=== PATIENT | female | born 1940 | race Caucasian/White ===

== ENCOUNTER 2017-09-25 21:50 | Emergency (ER) | payer MEDICARE, OTHER ==
[2017-09-26] MEDS: predniSONE 20 MG TAB PO (00:52)
[2017-09-26] MEDS: HYDROCODONE/APAP (5/325) TAB PO (00:52)
== END 2017-09-26 01:00 | disposition home or self-care (01) ==
LOC: FTE 21:50
DX: M19.90 Unspecified osteoarthritis, unspecified site (principal); J45.909 Unspecified asthma, uncomplicated; E11.9 Type 2 diabetes mellitus without complications; I10 Essential (primary) hypertension; Z79.84 Long term (current) use of oral hypoglycemic drugs
CPT/HCPCS: 99284

== ENCOUNTER 2017-10-02 15:17 | Inpatient (IN) | payer MEDICARE, OTHER ==
[2017-10-02 16:29] LABS: ADD MAN DIFF? NO
[2017-10-02 16:33] LABS: WHITE BLOOD COUNT 14.6 10^3/ul (4.8-10.8)
[2017-10-02 16:33] LABS: BASOPHIL # 0.1 10^3/ul (0.0-0.1); BASOPHILS % 0.7 % (0.0-2.0); EOSINOPHILS # 0.3 10^3/ul (0.0-0.5); EOSINOPHILS % 2.3 % (0.0-7.0); HEMATOCRIT 35.7 % (37.0-47.0); HEMOGLOBIN 11.3 g/dl (12.0-16.0); LYMPHOCYTES # 3.6 10^3/ul (0.8-2.9); LYMPHOCYTES % 24.6 % (15.0-51.0); MEAN CORPUSCULAR HEMOGLOBIN 26.7 pg (29.0-33.0); MEAN CORPUSCULAR HGB CONC 31.7 g/dl (32.0-37.0); MEAN CORPUSCULAR VOLUME 84.4 fl (82.0-101.0); MEAN PLATELET VOLUME 11.8 fl (7.4-10.4); MONOCYTE # 1.5 10^3/ul (0.3-0.9); MONOCYTES % 9.9 % (0.0-11.0); PLATELET COUNT 299 10^3/UL (140-415); RED BLOOD COUNT 4.23 10^6/ul (4.20-5.40); RED CELL DISTRIBUTION WIDTH 13.9 % (11.5-14.5)
[2017-10-02 16:41] LABS: ADD UMIC YES; UR ASCORBIC ACID NEGATIVE (NEGATIVE); UR BILIRUBIN (Dip) NEGATIVE (NEGATIVE); UR BLOOD (Dip) 1+ mg/dL (NEGATIVE); UR CLARITY CLEAR (CLEAR); UR COLOR STRAW (YELLOW); UR GLUCOSE (Dip) 1+ mg/dL (NEGATIVE); UR KETONES (Dip) NEGATIVE (NEGATIVE); UR LEUKOCYTE ESTERASE (Dip) 1+ Leu/ul (NEGATIVE); UR NITRITE (Dip) NEGATIVE (NEGATIVE); UR RBC 1 /HPF (0-5); UR SPECIFIC GRAVITY (Dip) 1.013 (1.003-1.030); UR TOTAL PROTEIN (Dip) NEGATIVE (NEGATIVE); UR UROBILINOGEN (Dip) NEGATIVE (NEGATIVE); UR WBC 6 /HPF (0-5)
[2017-10-02 16:51] LABS: HEMOGLOBIN A1C 7.6 % (0-5.9)
[2017-10-02 16:53] LABS: ANION GAP 15 (8-16); BLOOD UREA NITROGEN 49 mg/dl (7-20); CALCIUM 9.5 mg/dl (8.4-10.2); CARBON DIOXIDE 20 mmol/L (21-31); CHLORIDE 108 mmol/L (97-110); CHOL/HDL RATIO 4.8 RATIO; CHOLESTEROL 214 mg/dl (100-200); CREATININE 1.11 mg/dl (0.44-1.00); GLUCOSE 201 mg/dl (70-220); HDL CHOLESTEROL 44 mg/dl (33-92); LDL CHOLESTEROL,CALCULATED 92 mg/dl; POTASSIUM 4.2 mmol/L (3.5-5.1); SODIUM 139 mmol/L (135-144); TRIGLYCERIDES 391 mg/dl (0-149)
[2017-10-02 16:55] LABS: INR 0.93; PROTIME 12.6 Sec (11.9-14.9)
[2017-10-02 16:56] LABS: PARTIAL THROMBOPLASTIN TIME 26.1 Sec (25.0-35.0)
[2017-10-02] MEDS ORDERED: ACETAMINOPHEN 325 MG TAB PO (17:00)
[2017-10-02] MEDS ORDERED: ONDANSETRON 4 MG INJ IV ×2 (17:00→17:30)
[2017-10-02] MEDS: ASPIRIN 81 MG TAB PO (17:03)
[2017-10-02] MEDS: ACETAMINOPHEN 500 MG TAB PO (17:03)
[2017-10-02 17:05] LABS: AMPHETAMINE/METHAMPHETAMINE NEGATIVE (NEGATIVE); BARBITURATES NEGATIVE (NEGATIVE); BENZODIAZEPINES NEGATIVE (NEGATIVE); CANNABINOIDS NEGATIVE (NEGATIVE); COCAINE NEGATIVE (NEGATIVE); OPIATES POSITIVE (NEGATIVE)
[2017-10-02 17:08] LABS: TROPONIN-I < 0.012 ng/ml (0.00-0.12)
[2017-10-02] MEDS ORDERED: NACL 0.9% 3 ML SYG IV (17:30)
[2017-10-02] MEDS ORDERED: DOCUSATE SODIUM 100 MG CAP PO (17:30)
[2017-10-02] MEDS: SOD CHLORIDE 0.9% 500 ML IV (18:00)
[2017-10-02] MEDS: INSULIN ASPART [NOVOLOG] 3 ML PEN SC ×2 (18:00→22:45)
[2017-10-02] MEDS ORDERED: GLUCAGON 1 MG INJ IM (19:00)
[2017-10-02] MEDS ORDERED: GLUCOSE GEL 15 GRAM TUBE PO ×2 (19:00)
[2017-10-02] MEDS ORDERED: GLUCOSE GEL 15 GRAM TUBE BUCCAL (19:00)
[2017-10-02] MEDS ORDERED: DEXTROSE 50% 50 ML SYRINGE IV ×2 (19:00)
[2017-10-02] MEDS: ATORVASTATIN 40 MG TAB PO (22:43)
[2017-10-02] MEDS: HYDROCODONE/APAP (5/325) TAB PO (22:44)
[2017-10-02] MEDS: FAMOTIDINE 20 MG TAB PO (22:44)
[2017-10-03] MEDS: HYDROCODONE/APAP (5/325) TAB PO ×2 (06:11→17:41)
[2017-10-03 07:04] LABS: ADD MAN DIFF? NO
[2017-10-03 07:07] LABS: BASOPHIL # 0.1 10^3/ul (0.0-0.1); BASOPHILS % 0.9 % (0.0-2.0); EOSINOPHILS # 0.4 10^3/ul (0.0-0.5); EOSINOPHILS % 2.8 % (0.0-7.0); HEMATOCRIT 34.5 % (37.0-47.0); LYMPHOCYTES # 4.1 10^3/ul (0.8-2.9); LYMPHOCYTES % 29.3 % (15.0-51.0); MEAN CORPUSCULAR HEMOGLOBIN 26.9 pg (29.0-33.0); MEAN CORPUSCULAR HGB CONC 31.9 g/dl (32.0-37.0); MEAN CORPUSCULAR VOLUME 84.4 fl (82.0-101.0); MONOCYTE # 1.2 10^3/ul (0.3-0.9); MONOCYTES % 8.7 % (0.0-11.0); NEUTROPHIL # 8.1 10^3/ul (1.6-7.5); NEUTROPHILS % 57.8 % (39.0-77.0); PLATELET COUNT 283 10^3/UL (140-415); RED BLOOD COUNT 4.09 10^6/ul (4.20-5.40); RED CELL DISTRIBUTION WIDTH 14.1 % (11.5-14.5)
[2017-10-03 07:31] LABS: ANION GAP 14 (8-16); BLOOD UREA NITROGEN 45 mg/dl (7-20); CALCIUM 9.4 mg/dl (8.4-10.2); CARBON DIOXIDE 20 mmol/L (21-31); CHLORIDE 110 mmol/L (97-110); CREATININE 1.05 mg/dl (0.44-1.00); GLUCOSE 174 mg/dl (70-220); MAGNESIUM 1.9 mg/dl (1.7-2.5); POTASSIUM 4.4 mmol/L (3.5-5.1); SODIUM 140 mmol/L (135-144)
[2017-10-03 08:23] LABS: THYROID STIMULATING HORMONE < 0.015 MIU/L (0.465-4.680)
[2017-10-03] MEDS: ASPIRIN 81 MG TAB PO (08:36)
[2017-10-03] MEDS: INSULIN ASPART [NOVOLOG] 3 ML PEN SC ×4 (08:38→23:28)
[2017-10-03 09:59] LABS: FREE T4 (FREE THYROXINE) 1.81 ng/dl (0.78-2.44)
[2017-10-03 10:01] LABS: T4 (THYROXINE) 8.5 ug/dl (5.5-11.0)
[2017-10-03] MEDS: ACETAMINOPHEN 325 MG TAB PO (16:10)
[2017-10-03] MEDS: FAMOTIDINE 20 MG TAB PO (21:44)
[2017-10-03] MEDS: ATORVASTATIN 40 MG TAB PO (21:44)
[2017-10-04] MEDS: ACETAMINOPHEN 325 MG TAB PO ×2 (01:49→11:53)
[2017-10-04 05:35] LABS: ADD MAN DIFF? NO
[2017-10-04 05:36] LABS: BASOPHIL # 0.1 10^3/ul (0.0-0.1); BASOPHILS % 0.6 % (0.0-2.0); EOSINOPHILS # 0.4 10^3/ul (0.0-0.5); EOSINOPHILS % 2.6 % (0.0-7.0); HEMATOCRIT 36.2 % (37.0-47.0); HEMOGLOBIN 11.3 g/dl (12.0-16.0); LYMPHOCYTES # 3.2 10^3/ul (0.8-2.9); LYMPHOCYTES % 23.7 % (15.0-51.0); MEAN CORPUSCULAR HEMOGLOBIN 26.5 pg (29.0-33.0); MEAN CORPUSCULAR HGB CONC 31.2 g/dl (32.0-37.0); MEAN PLATELET VOLUME 12.9 fl (7.4-10.4); MONOCYTE # 1.1 10^3/ul (0.3-0.9); MONOCYTES % 8.4 % (0.0-11.0); NEUTROPHIL # 8.5 10^3/ul (1.6-7.5); PLATELET COUNT 177 10^3/UL (140-415); RED BLOOD COUNT 4.26 10^6/ul (4.20-5.40); RED CELL DISTRIBUTION WIDTH 14.1 % (11.5-14.5)
[2017-10-04 05:36] LABS: WHITE BLOOD COUNT 13.3 10^3/ul (4.8-10.8)
[2017-10-04 05:59] LABS: ALBUMIN 3.5 g/dl (3.3-4.9); ANION GAP 13 (8-16); BLOOD UREA NITROGEN 46 mg/dl (7-20); CALCIUM 9.1 mg/dl (8.4-10.2); CARBON DIOXIDE 21 mmol/L (21-31); CHLORIDE 113 mmol/L (97-110); CREATININE 1.06 mg/dl (0.44-1.00); GLUCOSE 170 mg/dl (70-220); PHOSPHORUS 4.1 mg/dl (2.5-4.9); POTASSIUM 4.6 mmol/L (3.5-5.1); SODIUM 142 mmol/L (135-144)
[2017-10-04] MEDS ORDERED: LOSARTAN 50 MG TAB PO (09:00)
[2017-10-04] MEDS: INSULIN ASPART [NOVOLOG] 3 ML PEN SC ×3 (09:06→17:39)
[2017-10-04] MEDS: ASPIRIN 81 MG TAB PO (09:09)
== END 2017-10-04 18:27 | DRG 65 ==
LOC: ICU 10-03 20:52 → MS4 10-04 12:23 → E/R 15:17 → MS4 17:00
DX: I63.031 Cerebral infarction due to thrombosis of right carotid artery (principal); G81.94 Hemiplegia, unspecified affecting left nondominant side; N17.9 Acute kidney failure, unspecified; E11.9 Type 2 diabetes mellitus without complications; D64.9 Anemia, unspecified; E78.5 Hyperlipidemia, unspecified; I16.0 Hypertensive urgency; R47.81 Slurred speech; R26.0 Ataxic gait; R29.810 Facial weakness; Z79.4 Long term (current) use of insulin; Z79.82 Long term (current) use of aspirin
CPT/HCPCS: 36415; 70450; 70546; 70553; 71045; 80048; 80061; 80069; 80307; 81001; 82962; 83036; 83735; 84436; 84439; 84443; 84481; 84484; 85025; 85610; 85730; 87081; 92526; 92610; 93005; 93306; 93880; 97163; 97165; 99285-25

== ENCOUNTER 2017-10-04 18:30 | Inpatient (IN) | payer MEDICARE, OTHER ==
[2017-10-04] MEDS: FAMOTIDINE 20 MG TAB PO (21:11)
[2017-10-04] MEDS: ATORVASTATIN 40 MG TAB PO (21:11)
[2017-10-04] MEDS: HYDROCODONE/APAP (5/325) TAB PO (21:51)
[2017-10-04] MEDS ORDERED: BISACODYL 10 MG SUPP PR (22:30)
[2017-10-04] MEDS ORDERED: MAGNESIUM HYDROXIDE 30ML CUP PO (22:30)
[2017-10-04 22:48] LABS: ADD UMIC YES; UR ASCORBIC ACID NEGATIVE (NEGATIVE); UR BILIRUBIN (Dip) NEGATIVE (NEGATIVE); UR BLOOD (Dip) NEGATIVE (NEGATIVE); UR CLARITY CLEAR (CLEAR); UR COLOR YELLOW (YELLOW); UR GLUCOSE (Dip) 1+ mg/dL (NEGATIVE); UR KETONES (Dip) NEGATIVE (NEGATIVE); UR LEUKOCYTE ESTERASE (Dip) 2+ Leu/ul (NEGATIVE); UR NITRITE (Dip) NEGATIVE (NEGATIVE); UR RBC 2 /HPF (0-5); UR SPECIFIC GRAVITY (Dip) 1.014 (1.003-1.030); UR TOTAL PROTEIN (Dip) NEGATIVE (NEGATIVE); UR UROBILINOGEN (Dip) NEGATIVE (NEGATIVE); UR WBC 14 /HPF (0-5)
[2017-10-05 06:34] LABS: ADD MAN DIFF? NO
[2017-10-05 06:41] LABS: BASOPHIL # 0.1 10^3/ul (0.0-0.1); BASOPHILS % 0.6 % (0.0-2.0); EOSINOPHILS # 0.4 10^3/ul (0.0-0.5); EOSINOPHILS % 3.5 % (0.0-7.0); HEMATOCRIT 35.5 % (37.0-47.0); HEMOGLOBIN 11.3 g/dl (12.0-16.0); MEAN CORPUSCULAR HEMOGLOBIN 26.5 pg (29.0-33.0); MEAN CORPUSCULAR HGB CONC 31.8 g/dl (32.0-37.0); MEAN CORPUSCULAR VOLUME 83.3 fl (82.0-101.0); MEAN PLATELET VOLUME 11.9 fl (7.4-10.4); MONOCYTE # 1.1 10^3/ul (0.3-0.9); MONOCYTES % 9.4 % (0.0-11.0); NEUTROPHIL # 6.6 10^3/ul (1.6-7.5); NEUTROPHILS % 59.1 % (39.0-77.0); PLATELET COUNT 257 10^3/UL (140-415); RED BLOOD COUNT 4.26 10^6/ul (4.20-5.40); RED CELL DISTRIBUTION WIDTH 13.6 % (11.5-14.5)
[2017-10-05 06:41] LABS: WHITE BLOOD COUNT 11.1 10^3/ul (4.8-10.8)
[2017-10-05 07:24] LABS: CARBON DIOXIDE 20 mmol/L (21-31); CHLORIDE 112 mmol/L (97-110); POTASSIUM 4.3 mmol/L (3.5-5.1); SODIUM 142 mmol/L (135-144)
[2017-10-05 07:25] LABS: ALANINE AMINOTRANSFERASE 28 IU/L (13-69); ALBUMIN 3.4 g/dl (3.3-4.9); ALBUMIN/GLOBULIN RATIO 1.06; ALKALINE PHOSPHATASE 111 IU/L (42-121); ANION GAP 14 (8-16); ASPARTATE AMINO TRANSFERASE 18 IU/L (15-46); BILIRUBIN,INDIRECT 0.2 mg/dl (0-1.1); BILIRUBIN,TOTAL 0.2 mg/dl (0.2-1.3); BLOOD UREA NITROGEN 47 mg/dl (7-20); CALCIUM 9.1 mg/dl (8.4-10.2); CREATININE 1.17 mg/dl (0.44-1.00); GLUCOSE 190 mg/dl (70-220); TOTAL PROTEIN 6.6 g/dl (6.1-8.1)
[2017-10-05] MEDS ORDERED: GLUCOSE GEL 15 GRAM TUBE PO ×2 (08:00)
[2017-10-05] MEDS ORDERED: DEXTROSE 50% 50 ML SYRINGE IV ×2 (08:00)
[2017-10-05] MEDS ORDERED: GLUCAGON 1 MG INJ IM (08:00)
[2017-10-05] MEDS ORDERED: GLUCOSE GEL 15 GRAM TUBE BUCCAL (08:00)
[2017-10-05] MEDS: GLIMEPIRIDE 2 MG TAB PO (08:20)
[2017-10-05] MEDS: ASPIRIN 81 MG TAB PO (08:20)
[2017-10-05] MEDS: LOSARTAN 50 MG TAB PO (08:21)
[2017-10-05] MEDS: LINAGLIPTIN 5 MG TABLET PO (08:21)
[2017-10-05] MEDS: HYDROCODONE/APAP (5/325) TAB PO (16:54)
[2017-10-05] MEDS: INSULIN ASPART [NOVOLOG] 3 ML PEN SC ×2 (18:07→22:05)
[2017-10-05] MEDS: ATORVASTATIN 40 MG TAB PO (22:03)
[2017-10-05] MEDS: FAMOTIDINE 20 MG TAB PO (22:03)
[2017-10-06] MEDS: ZOLPIDEM 5 MG TAB PO ×2 (00:08→21:47)
[2017-10-06] MEDS: ACCU-CHEK XX (02:00)
[2017-10-06] MEDS: INSULIN ASPART [NOVOLOG] 3 ML PEN SC ×4 (07:52→21:44)
[2017-10-06] MEDS: HYDROCODONE/APAP (5/325) TAB PO (07:53)
[2017-10-06] MEDS: LINAGLIPTIN 5 MG TABLET PO (09:06)
[2017-10-06] MEDS: ASPIRIN 81 MG TAB PO (09:06)
[2017-10-06] MEDS: LOSARTAN 50 MG TAB PO (09:09)
[2017-10-06] MEDS: LACTATED RINGER'S 500 ML IV ×2 (13:53→22:00)
[2017-10-06] MEDS: ACETAMINOPHEN 325 MG TAB PO (17:01)
[2017-10-06] MEDS: ATORVASTATIN 80 MG TAB PO (21:45)
[2017-10-06] MEDS: FAMOTIDINE 20 MG TAB PO (21:47)
[2017-10-07] MEDS: ACCU-CHEK XX (02:00)
[2017-10-07 07:48] LABS: ANION GAP 14 (8-16); BLOOD UREA NITROGEN 48 mg/dl (7-20); CALCIUM 9.4 mg/dl (8.4-10.2); CARBON DIOXIDE 21 mmol/L (21-31); CHLORIDE 114 mmol/L (97-110); CREATININE 1.08 mg/dl (0.44-1.00); GLUCOSE 186 mg/dl (70-220); POTASSIUM 4.5 mmol/L (3.5-5.1); SODIUM 144 mmol/L (135-144)
[2017-10-07 08:01] LABS: FREE T4 (FREE THYROXINE) 2.17 ng/dl (0.78-2.44)
[2017-10-07 08:02] LABS: FREE T3 5.63 pg/ml (2.77-5.27)
[2017-10-07] MEDS: ASPIRIN 81 MG TAB PO (08:12)
[2017-10-07] MEDS: LINAGLIPTIN 5 MG TABLET PO (08:12)
[2017-10-07] MEDS: INSULIN ASPART [NOVOLOG] 3 ML PEN SC ×4 (08:12→20:36)
[2017-10-07] MEDS: LOSARTAN 50 MG TAB PO (08:13)
[2017-10-07 08:16] LABS: THYROID STIMULATING HORMONE < 0.015 MIU/L (0.465-4.680)
[2017-10-07] MEDS: HYDROCODONE/APAP (5/325) TAB PO (08:21)
[2017-10-07] MEDS: METHIMAZOLE 5 MG TAB PO (12:45)
[2017-10-07] MEDS: ATORVASTATIN 80 MG TAB PO (20:34)
[2017-10-07] MEDS: FAMOTIDINE 20 MG TAB PO (20:34)
[2017-10-08] MEDS: ACCU-CHEK XX (02:17)
[2017-10-08] MEDS: INSULIN ASPART [NOVOLOG] 3 ML PEN SC ×4 (07:53→20:35)
[2017-10-08] MEDS: ASPIRIN 81 MG TAB PO (08:51)
[2017-10-08] MEDS: HYDROCODONE/APAP (5/325) TAB PO ×2 (08:51→20:26)
[2017-10-08] MEDS: METHIMAZOLE 5 MG TAB PO (08:52)
[2017-10-08] MEDS: LINAGLIPTIN 5 MG TABLET PO (08:52)
[2017-10-08] MEDS: LOSARTAN 50 MG TAB PO (08:54)
[2017-10-08] MEDS: FAMOTIDINE 20 MG TAB PO (20:25)
[2017-10-08] MEDS: ATORVASTATIN 80 MG TAB PO (20:25)
[2017-10-08] MEDS: INSULIN GLARGINE [LANtus] 3 ML PEN SC (20:35)
[2017-10-09] MEDS: ACCU-CHEK XX (02:00)
[2017-10-09] MEDS: INSULIN ASPART [NOVOLOG] 3 ML PEN SC ×4 (07:56→21:42)
[2017-10-09] MEDS ORDERED: INSULIN GLARGINE [LANtus] 3 ML PEN SC (08:00)
[2017-10-09] MEDS: LINAGLIPTIN 5 MG TABLET PO (09:09)
[2017-10-09] MEDS: LOSARTAN 50 MG TAB PO (09:09)
[2017-10-09] MEDS: METHIMAZOLE 5 MG TAB PO (09:10)
[2017-10-09] MEDS: ASPIRIN 81 MG TAB PO (09:10)
[2017-10-09] MEDS: ATORVASTATIN 80 MG TAB PO (21:33)
[2017-10-09] MEDS: FAMOTIDINE 20 MG TAB PO (21:33)
[2017-10-09] MEDS: DOCUSATE SODIUM 100 MG CAP PO (21:33)
[2017-10-09] MEDS: INSULIN GLARGINE [LANtus] 3 ML PEN SC (21:42)
[2017-10-10] MEDS: ACCU-CHEK XX (02:59)
[2017-10-10] MEDS: INSULIN ASPART [NOVOLOG] 3 ML PEN SC ×4 (07:45→21:00)
[2017-10-10] MEDS: LINAGLIPTIN 5 MG TABLET PO (08:23)
[2017-10-10] MEDS: ASPIRIN 81 MG TAB PO (08:23)
[2017-10-10] MEDS: METHIMAZOLE 5 MG TAB PO (08:26)
[2017-10-10] MEDS: LOSARTAN 50 MG TAB PO (08:27)
[2017-10-10] MEDS: FAMOTIDINE 20 MG TAB PO (21:37)
[2017-10-10] MEDS: ATORVASTATIN 80 MG TAB PO (21:37)
[2017-10-10] MEDS: INSULIN GLARGINE [LANtus] 3 ML PEN SC (21:45)
[2017-10-10] MEDS: ACETAMINOPHEN 325 MG TAB PO (21:50)
[2017-10-10] MEDS: ZOLPIDEM 5 MG TAB PO (21:51)
[2017-10-11] MEDS: ACCU-CHEK XX (02:00)
[2017-10-11] MEDS: INSULIN ASPART [NOVOLOG] 3 ML PEN SC ×4 (07:35→21:00)
[2017-10-11] MEDS: HYDROCODONE/APAP (5/325) TAB PO ×2 (09:11→15:40)
[2017-10-11] MEDS: METHIMAZOLE 5 MG TAB PO (09:12)
[2017-10-11] MEDS: LOSARTAN 50 MG TAB PO (09:12)
[2017-10-11] MEDS: LINAGLIPTIN 5 MG TABLET PO (09:12)
[2017-10-11] MEDS: ASPIRIN 81 MG TAB PO (09:13)
[2017-10-11] MEDS: ATORVASTATIN 80 MG TAB PO (20:52)
[2017-10-11] MEDS: FAMOTIDINE 20 MG TAB PO (20:52)
[2017-10-11] MEDS: ACETAMINOPHEN 325 MG TAB PO (20:55)
[2017-10-11] MEDS: ZOLPIDEM 5 MG TAB PO (20:55)
[2017-10-11] MEDS: INSULIN GLARGINE [LANtus] 3 ML PEN SC (21:01)
[2017-10-12] MEDS: ACCU-CHEK XX (02:00)
[2017-10-12] MEDS: INSULIN ASPART [NOVOLOG] 3 ML PEN SC ×4 (07:56→20:31)
[2017-10-12] MEDS: ASPIRIN 81 MG TAB PO (08:17)
[2017-10-12] MEDS: METHIMAZOLE 5 MG TAB PO (08:17)
[2017-10-12] MEDS: LOSARTAN 50 MG TAB PO (08:18)
[2017-10-12] MEDS: LINAGLIPTIN 5 MG TABLET PO (08:18)
[2017-10-12] MEDS: HYDROCODONE/APAP (5/325) TAB PO ×2 (08:20→20:28)
[2017-10-12 12:21] LABS: ADD MAN DIFF? NO
[2017-10-12 12:26] LABS: BASOPHIL # 0.1 10^3/ul (0.0-0.1); EOSINOPHILS # 0.3 10^3/ul (0.0-0.5); EOSINOPHILS % 2.4 % (0.0-7.0); HEMATOCRIT 33.8 % (37.0-47.0); HEMOGLOBIN 10.8 g/dl (12.0-16.0); MEAN CORPUSCULAR HEMOGLOBIN 26.5 pg (29.0-33.0); MEAN CORPUSCULAR VOLUME 82.8 fl (82.0-101.0); MEAN PLATELET VOLUME 12.1 fl (7.4-10.4); MONOCYTE # 1.1 10^3/ul (0.3-0.9); MONOCYTES % 9.7 % (0.0-11.0); NEUTROPHIL # 7.6 10^3/ul (1.6-7.5); NEUTROPHILS % 68.5 % (39.0-77.0); PLATELET COUNT 216 10^3/UL (140-415); RED BLOOD COUNT 4.08 10^6/ul (4.20-5.40)
[2017-10-12 12:26] LABS: WHITE BLOOD COUNT 11.1 10^3/ul (4.8-10.8)
[2017-10-12 12:43] LABS: ANION GAP 15 (8-16); BLOOD UREA NITROGEN 39 mg/dl (7-20); CALCIUM 9.5 mg/dl (8.4-10.2); CARBON DIOXIDE 20 mmol/L (21-31); CHLORIDE 112 mmol/L (97-110); CREATININE 1.16 mg/dl (0.44-1.00); GLUCOSE 175 mg/dl (70-220); POTASSIUM 4.4 mmol/L (3.5-5.1); SODIUM 143 mmol/L (135-144)
[2017-10-12] MEDS: FAMOTIDINE 20 MG TAB PO (20:14)
[2017-10-12] MEDS: ATORVASTATIN 80 MG TAB PO (20:14)
[2017-10-12] MEDS: INSULIN GLARGINE [LANtus] 3 ML PEN SC (20:32)
[2017-10-13] MEDS: ACCU-CHEK XX (02:00)
[2017-10-13] MEDS: INSULIN ASPART [NOVOLOG] 3 ML PEN SC ×4 (07:42→22:09)
[2017-10-13] MEDS: LINAGLIPTIN 5 MG TABLET PO (08:51)
[2017-10-13] MEDS: LOSARTAN 50 MG TAB PO (08:51)
[2017-10-13] MEDS: METHIMAZOLE 5 MG TAB PO (08:51)
[2017-10-13] MEDS: ASPIRIN 81 MG TAB PO (08:51)
[2017-10-13] MEDS: HYDROCODONE/APAP (5/325) TAB PO ×2 (11:35→19:27)
[2017-10-13] MEDS: ACETAMINOPHEN 325 MG TAB PO (16:49)
[2017-10-13] MEDS ORDERED: ONDANSETRON 4 MG INJ IV (20:30)
[2017-10-13] MEDS: ATORVASTATIN 80 MG TAB PO (21:49)
[2017-10-13] MEDS: ZOLPIDEM 5 MG TAB PO (21:49)
[2017-10-13] MEDS: ONDANSETRON (ODT) 4 MG TAB ODT (21:49)
[2017-10-13] MEDS: FAMOTIDINE 20 MG TAB PO (21:49)
[2017-10-13] MEDS: SUMATRIPTAN 6 MG/0.5 ML INJ SC (21:56)
[2017-10-13] MEDS: INSULIN GLARGINE [LANtus] 3 ML PEN SC (22:11)
[2017-10-14] MEDS: ACCU-CHEK XX (02:00)
[2017-10-14 06:22] LABS: ADD MAN DIFF? NO
[2017-10-14] MEDS: METOPROLOL 25 MG TAB PO (06:28)
[2017-10-14] MEDS: ONDANSETRON (ODT) 4 MG TAB ODT (06:28)
[2017-10-14] MEDS: SUMATRIPTAN 6 MG/0.5 ML INJ SC (06:29)
[2017-10-14 06:32] LABS: WHITE BLOOD COUNT 11.2 10^3/ul (4.8-10.8)
[2017-10-14 06:32] LABS: BASOPHIL # 0.1 10^3/ul (0.0-0.1); BASOPHILS % 0.9 % (0.0-2.0); EOSINOPHILS # 0.2 10^3/ul (0.0-0.5); EOSINOPHILS % 1.7 % (0.0-7.0); HEMATOCRIT 32.1 % (37.0-47.0); HEMOGLOBIN 10.2 g/dl (12.0-16.0); LYMPHOCYTES # 1.6 10^3/ul (0.8-2.9); LYMPHOCYTES % 14.5 % (15.0-51.0); MEAN CORPUSCULAR HEMOGLOBIN 26.6 pg (29.0-33.0); MEAN CORPUSCULAR HGB CONC 31.8 g/dl (32.0-37.0); MEAN CORPUSCULAR VOLUME 83.6 fl (82.0-101.0); MEAN PLATELET VOLUME 12.3 fl (7.4-10.4); MONOCYTE # 0.9 10^3/ul (0.3-0.9); MONOCYTES % 8.1 % (0.0-11.0); NEUTROPHIL # 8.3 10^3/ul (1.6-7.5); NEUTROPHILS % 74.4 % (39.0-77.0); PLATELET COUNT 211 10^3/UL (140-415); RED BLOOD COUNT 3.84 10^6/ul (4.20-5.40); RED CELL DISTRIBUTION WIDTH 14.2 % (11.5-14.5)
[2017-10-14 06:54] LABS: ALANINE AMINOTRANSFERASE 39 IU/L (13-69); ALBUMIN 3.4 g/dl (3.3-4.9); ALKALINE PHOSPHATASE 112 IU/L (42-121); ANION GAP 14 (8-16); ASPARTATE AMINO TRANSFERASE 25 IU/L (15-46); BILIRUBIN,INDIRECT 0.2 mg/dl (0-1.1); BILIRUBIN,TOTAL 0.2 mg/dl (0.2-1.3); BLOOD UREA NITROGEN 36 mg/dl (7-20); CALCIUM 9.7 mg/dl (8.4-10.2); CARBON DIOXIDE 22 mmol/L (21-31); CHLORIDE 113 mmol/L (97-110); CREATININE 1.14 mg/dl (0.44-1.00); GLUCOSE 180 mg/dl (70-220); MAGNESIUM 1.9 mg/dl (1.7-2.5); PHOSPHORUS 3.9 mg/dl (2.5-4.9); POTASSIUM 4.5 mmol/L (3.5-5.1); SODIUM 144 mmol/L (135-144); TOTAL PROTEIN 6.8 g/dl (6.1-8.1)
[2017-10-14 07:05] LABS: TROPONIN-I 0.074 ng/ml (0.00-0.12)
[2017-10-14 07:24] LABS: THYROID STIMULATING HORMONE < 0.015 MIU/L (0.465-4.680)
[2017-10-14] MEDS: INSULIN ASPART [NOVOLOG] 3 ML PEN SC (07:35)
[2017-10-14] MEDS: LOSARTAN 50 MG TAB PO (08:25)
[2017-10-14] MEDS: ASPIRIN 81 MG TAB PO (08:25)
[2017-10-14] MEDS: LINAGLIPTIN 5 MG TABLET PO (08:29)
[2017-10-14] MEDS: METHIMAZOLE 5 MG TAB PO (08:29)
[2017-10-14] MEDS ORDERED: METOPROLOL 50 MG TAB PO (09:00)
[2017-10-14] MEDS ORDERED: LABETALOL HCL 20MG INJ IV (12:00)
[2017-10-14] MEDS ORDERED: METOPROLOL 25 MG TAB PO (21:00)
== END 2017-10-14 10:35 | disposition short-term general hospital (02) | DRG 945 ==
LOC: VRC 10-12 11:18
PROC: F07Z5FZ Bed Mobility Treatment using Assistive, Adaptive, Supportive or Protective Equipment (ICD-10-PCS; principal; 2017-10-05)
PROC: F07Z9FZ Gait Training/Functional Ambulation Treatment using Assistive, Adaptive, Supportive or Protective Equipment (ICD-10-PCS; 2017-10-05)
PROC: F07Z8FZ Transfer Training Treatment using Assistive, Adaptive, Supportive or Protective Equipment (ICD-10-PCS; 2017-10-05)
PROC: F08Z0FZ Bathing/Showering Techniques Treatment using Assistive, Adaptive, Supportive or Protective Equipment (ICD-10-PCS; 2017-10-05)
PROC: F08Z1FZ Dressing Techniques Treatment using Assistive, Adaptive, Supportive or Protective Equipment (ICD-10-PCS; 2017-10-05)
PROC: F08Z2FZ Grooming/Personal Hygiene Treatment using Assistive, Adaptive, Supportive or Protective Equipment (ICD-10-PCS; 2017-10-05)
DX: Z51.89 Encounter for other specified aftercare (principal); N17.9 Acute kidney failure, unspecified; I69.354 Hemiplegia and hemiparesis following cerebral infarction affecting left non-dominant side; E11.22 Type 2 diabetes mellitus with diabetic chronic kidney disease; E05.90 Thyrotoxicosis, unspecified without thyrotoxic crisis or storm; F01.50 Vascular dementia, unspecified severity, without behavioral disturbance, psychotic disturbance, mood disturbance, and anxiety; D64.9 Anemia, unspecified; I69.328 Other speech and language deficits following cerebral infarction; I69.392 Facial weakness following cerebral infarction; E78.5 Hyperlipidemia, unspecified; G47.00 Insomnia, unspecified; I12.9 Hypertensive chronic kidney disease with stage 1 through stage 4 chronic kidney disease, or unspecified chronic kidney disease; N18.2 Chronic kidney disease, stage 2 (mild); F06.31 Mood disorder due to known physiological condition with depressive features; Z79.4 Long term (current) use of insulin; Z79.82 Long term (current) use of aspirin
CPT/HCPCS: 70450; 70551; 80048; 80053; 81001; 82962; 83735; 84100; 84439; 84443; 84481; 84484; 85025; 87081; 87086; 92507; 93005; 97110; 97112; 97116; 97150; 97163; 97167; 97530; 97535; 97542

== ENCOUNTER 2017-10-14 11:00 | Inpatient (IN) | payer MEDICARE, OTHER ==
[2017-10-14] MEDS ORDERED: morphine 2 MG INJ IV (12:00)
[2017-10-14] MEDS ORDERED: LABETALOL HCL 20MG INJ IV (12:00)
[2017-10-14] MEDS ORDERED: NACL 0.9% 3 ML SYG IV (12:00)
[2017-10-14] MEDS: INSULIN ASPART [NOVOLOG] 3 ML PEN SC ×3 (12:00→21:01)
[2017-10-14 12:10] LABS: PLATELET COUNT 215 10^3/UL (140-415)
[2017-10-14 12:26] LABS: INR 0.99; PROTIME 13.2 Sec (11.9-14.9)
[2017-10-14 12:29] LABS: PARTIAL THROMBOPLASTIN TIME 29.6 Sec (25.0-35.0)
[2017-10-14] MEDS ORDERED: GLUCAGON 1 MG INJ IM (12:30)
[2017-10-14] MEDS ORDERED: DEXTROSE 50% 50 ML SYRINGE IV ×2 (12:30)
[2017-10-14] MEDS ORDERED: GLUCOSE GEL 15 GRAM TUBE BUCCAL (12:30)
[2017-10-14] MEDS ORDERED: GLUCOSE GEL 15 GRAM TUBE PO ×2 (12:30)
[2017-10-14] MEDS: DEXTROSE 5%-0.45% NACL 1,000 ML IV (12:41)
[2017-10-14 12:43] LABS: THROMBIN TIME 14.8 SEC (13.8-19.1)
[2017-10-14] MEDS: ONDANSETRON 4 MG INJ IV (16:16)
[2017-10-14] MEDS ORDERED: ACETAMINOPHEN 325 MG TAB PO (16:30)
[2017-10-14] MEDS: ACETAMINOPHEN 325 MG TAB PO (16:31)
[2017-10-14] MEDS: INSULIN GLARGINE [LANtus] 3 ML PEN SC (21:00)
[2017-10-14] MEDS: ATORVASTATIN 80 MG TAB PO (21:01)
[2017-10-15] MEDS: ACCU-CHEK XX (02:00)
[2017-10-15] MEDS: PANTOPRAZOLE 40 MG INJ IV (06:21)
[2017-10-15] MEDS: ACETAMINOPHEN 325 MG TAB PO ×3 (06:27→20:09)
[2017-10-15 06:59] LABS: ADD MAN DIFF? NO
[2017-10-15 07:02] LABS: WHITE BLOOD COUNT 11.1 10^3/ul (4.8-10.8)
[2017-10-15 07:02] LABS: BASOPHIL # 0.1 10^3/ul (0.0-0.1); BASOPHILS % 0.9 % (0.0-2.0); EOSINOPHILS # 0.2 10^3/ul (0.0-0.5); EOSINOPHILS % 1.7 % (0.0-7.0); HEMATOCRIT 31.7 % (37.0-47.0); HEMOGLOBIN 9.8 g/dl (12.0-16.0); LYMPHOCYTES # 1.8 10^3/ul (0.8-2.9); LYMPHOCYTES % 16.5 % (15.0-51.0); MEAN CORPUSCULAR HEMOGLOBIN 26.6 pg (29.0-33.0); MEAN CORPUSCULAR HGB CONC 30.9 g/dl (32.0-37.0); MEAN CORPUSCULAR VOLUME 85.9 fl (82.0-101.0); MEAN PLATELET VOLUME 12.5 fl (7.4-10.4); MONOCYTES % 9.3 % (0.0-11.0); NEUTROPHIL # 7.9 10^3/ul (1.6-7.5); NEUTROPHILS % 71.2 % (39.0-77.0); PLATELET COUNT 185 10^3/UL (140-415); RED BLOOD COUNT 3.69 10^6/ul (4.20-5.40); RED CELL DISTRIBUTION WIDTH 14.5 % (11.5-14.5)
[2017-10-15 07:21] LABS: ALANINE AMINOTRANSFERASE 33 IU/L (13-69); ALBUMIN 3.6 g/dl (3.3-4.9); ALBUMIN/GLOBULIN RATIO 1.09; ALKALINE PHOSPHATASE 105 IU/L (42-121); ANION GAP 17 (8-16); ASPARTATE AMINO TRANSFERASE 25 IU/L (15-46); BILIRUBIN,INDIRECT 0.4 mg/dl (0-1.1); BILIRUBIN,TOTAL 0.4 mg/dl (0.2-1.3); BLOOD UREA NITROGEN 39 mg/dl (7-20); CALCIUM 9.5 mg/dl (8.4-10.2); CARBON DIOXIDE 20 mmol/L (21-31); CHLORIDE 111 mmol/L (97-110); CREATININE 1.37 mg/dl (0.44-1.00); GLUCOSE 144 mg/dl (70-220); SODIUM 143 mmol/L (135-144); TOTAL PROTEIN 6.9 g/dl (6.1-8.1)
[2017-10-15] MEDS: DEXTROSE 5%-0.45% NACL 1,000 ML IV (07:40)
[2017-10-15] MEDS: ASPIRIN 81 MG TAB PO (08:17)
[2017-10-15] MEDS: METHIMAZOLE 5 MG TAB PO (08:17)
[2017-10-15] MEDS: LOSARTAN 50 MG TAB PO (08:18)
[2017-10-15] MEDS: INSULIN ASPART [NOVOLOG] 3 ML PEN SC ×4 (08:21→20:28)
[2017-10-15] MEDS: HYDROCODONE/APAP (5/325) TAB PO (14:32)
[2017-10-15] MEDS ORDERED: DIPHENHYDRAMINE 50 MG INJ IV (15:00)
[2017-10-15] MEDS: ATORVASTATIN 80 MG TAB PO (20:09)
[2017-10-15] MEDS: INSULIN GLARGINE [LANtus] 3 ML PEN SC (20:28)
[2017-10-16] MEDS: ACCU-CHEK XX (01:46)
[2017-10-16] MEDS: ONDANSETRON 4 MG INJ IV (01:49)
[2017-10-16] MEDS: DEXTROSE 5%-0.45% NACL 1,000 ML IV (03:40)
[2017-10-16] MEDS: LABETALOL HCL 20MG INJ IV (04:24)
[2017-10-16] MEDS: PANTOPRAZOLE 40 MG INJ IV (05:48)
[2017-10-16 06:41] LABS: ADD MAN DIFF? NO
[2017-10-16 06:50] LABS: WHITE BLOOD COUNT 12.5 10^3/ul (4.8-10.8)
[2017-10-16 06:50] LABS: BASOPHIL # 0.1 10^3/ul (0.0-0.1); BASOPHILS % 0.9 % (0.0-2.0); EOSINOPHILS # 0.3 10^3/ul (0.0-0.5); EOSINOPHILS % 2.4 % (0.0-7.0); HEMATOCRIT 31.4 % (37.0-47.0); HEMOGLOBIN 9.9 g/dl (12.0-16.0); LYMPHOCYTES % 15.7 % (15.0-51.0); MEAN CORPUSCULAR HEMOGLOBIN 26.7 pg (29.0-33.0); MEAN CORPUSCULAR HGB CONC 31.5 g/dl (32.0-37.0); MEAN CORPUSCULAR VOLUME 84.6 fl (82.0-101.0); MEAN PLATELET VOLUME 12.1 fl (7.4-10.4); MONOCYTE # 1.1 10^3/ul (0.3-0.9); MONOCYTES % 8.7 % (0.0-11.0); PLATELET COUNT 189 10^3/UL (140-415); RED BLOOD COUNT 3.71 10^6/ul (4.20-5.40); RED CELL DISTRIBUTION WIDTH 13.8 % (11.5-14.5)
[2017-10-16 07:15] LABS: ALBUMIN 3.3 g/dl (3.3-4.9); ANION GAP 11 (8-16); BLOOD UREA NITROGEN 38 mg/dl (7-20); CALCIUM 9.7 mg/dl (8.4-10.2); CARBON DIOXIDE 24 mmol/L (21-31); CHLORIDE 113 mmol/L (97-110); CREATININE 1.23 mg/dl (0.44-1.00); GLUCOSE 156 mg/dl (70-220); MAGNESIUM 1.9 mg/dl (1.7-2.5); PHOSPHORUS 4.1 mg/dl (2.5-4.9); POTASSIUM 4.6 mmol/L (3.5-5.1); SODIUM 143 mmol/L (135-144)
[2017-10-16] MEDS: ASPIRIN 81 MG TAB PO (09:12)
[2017-10-16] MEDS: traZODone 50 MG TAB PO (09:16)
[2017-10-16] MEDS: LOSARTAN 50 MG TAB PO (09:16)
[2017-10-16] MEDS: INSULIN ASPART [NOVOLOG] 3 ML PEN SC ×4 (09:25→20:44)
[2017-10-16] MEDS: METHIMAZOLE 5 MG TAB PO (09:30)
[2017-10-16] MEDS: ACETAMINOPHEN 325 MG TAB PO ×2 (09:31→20:33)
[2017-10-16] MEDS: HYDROCODONE/APAP (5/325) TAB PO (12:00)
[2017-10-16] MEDS: CLONIDINE 0.1 MG/24 HR PATCH TRANSDERM (12:44)
[2017-10-16] MEDS ORDERED: morphine LIQ (10 MG/5 ML) CUP PO (16:00)
[2017-10-16] MEDS: ATORVASTATIN 80 MG TAB PO (20:33)
[2017-10-16] MEDS: INSULIN GLARGINE [LANtus] 3 ML PEN SC (20:46)
[2017-10-17] MEDS: PANTOPRAZOLE 40 MG INJ IV (05:35)
[2017-10-17] MEDS: METHIMAZOLE 5 MG TAB PO (08:39)
[2017-10-17] MEDS: ASPIRIN 81 MG TAB PO (08:39)
[2017-10-17] MEDS: LOSARTAN 50 MG TAB PO (08:40)
[2017-10-17] MEDS: INSULIN ASPART [NOVOLOG] 3 ML PEN SC ×4 (08:42→21:00)
[2017-10-17 09:25] LABS: ADD MAN DIFF? NO
[2017-10-17 09:32] LABS: WHITE BLOOD COUNT 10.9 10^3/ul (4.8-10.8)
[2017-10-17 09:32] LABS: BASOPHIL # 0.1 10^3/ul (0.0-0.1); BASOPHILS % 0.7 % (0.0-2.0); EOSINOPHILS # 0.3 10^3/ul (0.0-0.5); EOSINOPHILS % 2.5 % (0.0-7.0); HEMATOCRIT 32.5 % (37.0-47.0); HEMOGLOBIN 10.3 g/dl (12.0-16.0); LYMPHOCYTES # 1.3 10^3/ul (0.8-2.9); LYMPHOCYTES % 11.8 % (15.0-51.0); MEAN CORPUSCULAR HEMOGLOBIN 26.7 pg (29.0-33.0); MEAN CORPUSCULAR HGB CONC 31.7 g/dl (32.0-37.0); MEAN CORPUSCULAR VOLUME 84.2 fl (82.0-101.0); MEAN PLATELET VOLUME 12.3 fl (7.4-10.4); MONOCYTE # 0.9 10^3/ul (0.3-0.9); NEUTROPHIL # 8.3 10^3/ul (1.6-7.5); NEUTROPHILS % 76.6 % (39.0-77.0); PLATELET COUNT 198 10^3/UL (140-415); RED BLOOD COUNT 3.86 10^6/ul (4.20-5.40); RED CELL DISTRIBUTION WIDTH 13.6 % (11.5-14.5)
[2017-10-17 10:11] LABS: ALBUMIN 3.8 g/dl (3.3-4.9); ANION GAP 15 (8-16); BLOOD UREA NITROGEN 35 mg/dl (7-20); CALCIUM 9.5 mg/dl (8.4-10.2); CARBON DIOXIDE 22 mmol/L (21-31); CHLORIDE 110 mmol/L (97-110); CREATININE 1.08 mg/dl (0.44-1.00); GLUCOSE 167 mg/dl (70-220); MAGNESIUM 1.9 mg/dl (1.7-2.5); POTASSIUM 4.4 mmol/L (3.5-5.1); SODIUM 143 mmol/L (135-144)
[2017-10-17] MEDS: ACETAMINOPHEN 325 MG TAB PO (20:11)
[2017-10-17] MEDS: ATORVASTATIN 80 MG TAB PO (21:27)
[2017-10-17] MEDS: INSULIN GLARGINE [LANtus] 3 ML PEN SC (21:28)
[2017-10-18] MEDS: PANTOPRAZOLE 40 MG INJ IV (05:51)
[2017-10-18] MEDS: LABETALOL HCL 20MG INJ IV (06:22)
[2017-10-18 07:55] LABS: ADD MAN DIFF? NO
[2017-10-18 07:58] LABS: WHITE BLOOD COUNT 11.6 10^3/ul (4.8-10.8)
[2017-10-18 07:58] LABS: BASOPHIL # 0.1 10^3/ul (0.0-0.1); BASOPHILS % 0.8 % (0.0-2.0); EOSINOPHILS # 0.5 10^3/ul (0.0-0.5); EOSINOPHILS % 3.9 % (0.0-7.0); HEMOGLOBIN 10.2 g/dl (12.0-16.0); LYMPHOCYTES # 2.5 10^3/ul (0.8-2.9); LYMPHOCYTES % 21.2 % (15.0-51.0); MEAN CORPUSCULAR HEMOGLOBIN 26.5 pg (29.0-33.0); MEAN CORPUSCULAR HGB CONC 31.9 g/dl (32.0-37.0); MEAN CORPUSCULAR VOLUME 83.1 fl (82.0-101.0); MEAN PLATELET VOLUME 12.1 fl (7.4-10.4); MONOCYTE # 1.1 10^3/ul (0.3-0.9); MONOCYTES % 9.3 % (0.0-11.0); NEUTROPHIL # 7.5 10^3/ul (1.6-7.5); NEUTROPHILS % 64.5 % (39.0-77.0); PLATELET COUNT 196 10^3/UL (140-415); RED BLOOD COUNT 3.85 10^6/ul (4.20-5.40); RED CELL DISTRIBUTION WIDTH 13.7 % (11.5-14.5)
[2017-10-18 08:24] LABS: ALBUMIN 3.7 g/dl (3.3-4.9); ANION GAP 14 (8-16); BLOOD UREA NITROGEN 41 mg/dl (7-20); CALCIUM 9.4 mg/dl (8.4-10.2); CARBON DIOXIDE 23 mmol/L (21-31); CHLORIDE 109 mmol/L (97-110); CREATININE 1.24 mg/dl (0.44-1.00); GLUCOSE 154 mg/dl (70-220); MAGNESIUM 2.1 mg/dl (1.7-2.5); PHOSPHORUS 4.5 mg/dl (2.5-4.9); POTASSIUM 4.1 mmol/L (3.5-5.1); SODIUM 142 mmol/L (135-144)
[2017-10-18] MEDS: DOCUSATE SODIUM 100 MG CAP PO (08:56)
[2017-10-18] MEDS: ASPIRIN 81 MG TAB PO (08:56)
[2017-10-18] MEDS: METHIMAZOLE 5 MG TAB PO (08:57)
[2017-10-18] MEDS: LOSARTAN 50 MG TAB PO (08:57)
[2017-10-18] MEDS: INSULIN ASPART [NOVOLOG] 3 ML PEN SC ×4 (09:04→21:27)
[2017-10-18] MEDS: HYDROCODONE/APAP (5/325) TAB PO ×2 (09:16→14:33)
[2017-10-18] MEDS ORDERED: morphine 2 MG INJ IV (15:00)
[2017-10-18] MEDS: ATORVASTATIN 80 MG TAB PO (20:39)
[2017-10-18] MEDS: ACETAMINOPHEN 325 MG TAB PO (20:39)
[2017-10-18] MEDS: INSULIN GLARGINE [LANtus] 3 ML PEN SC (20:46)
[2017-10-19] MEDS: PANTOPRAZOLE 40 MG INJ IV (05:10)
[2017-10-19 07:55] LABS: ADD MAN DIFF? NO
[2017-10-19 08:07] LABS: WHITE BLOOD COUNT 12.9 10^3/ul (4.8-10.8)
[2017-10-19 08:07] LABS: BASOPHIL # 0.1 10^3/ul (0.0-0.1); BASOPHILS % 0.9 % (0.0-2.0); EOSINOPHILS # 0.4 10^3/ul (0.0-0.5); EOSINOPHILS % 3.3 % (0.0-7.0); HEMATOCRIT 33.3 % (37.0-47.0); HEMOGLOBIN 10.5 g/dl (12.0-16.0); LYMPHOCYTES # 2.1 10^3/ul (0.8-2.9); LYMPHOCYTES % 15.9 % (15.0-51.0); MEAN CORPUSCULAR HEMOGLOBIN 26.4 pg (29.0-33.0); MEAN CORPUSCULAR HGB CONC 31.5 g/dl (32.0-37.0); MEAN CORPUSCULAR VOLUME 83.7 fl (82.0-101.0); MEAN PLATELET VOLUME 12.6 fl (7.4-10.4); NEUTROPHIL # 9.2 10^3/ul (1.6-7.5); NEUTROPHILS % 71.4 % (39.0-77.0); PLATELET COUNT 217 10^3/UL (140-415); RED BLOOD COUNT 3.98 10^6/ul (4.20-5.40); RED CELL DISTRIBUTION WIDTH 13.2 % (11.5-14.5)
[2017-10-19] MEDS: ASPIRIN 81 MG TAB PO (08:19)
[2017-10-19] MEDS: METHIMAZOLE 5 MG TAB PO (08:19)
[2017-10-19] MEDS: LOSARTAN 50 MG TAB PO (08:20)
[2017-10-19] MEDS: INSULIN ASPART [NOVOLOG] 3 ML PEN SC ×4 (08:22→22:11)
[2017-10-19 08:27] LABS: ALBUMIN 3.6 g/dl (3.3-4.9); ANION GAP 12 (8-16); BLOOD UREA NITROGEN 46 mg/dl (7-20); CALCIUM 9.7 mg/dl (8.4-10.2); CARBON DIOXIDE 24 mmol/L (21-31); CHLORIDE 110 mmol/L (97-110); CREATININE 1.33 mg/dl (0.44-1.00); GLUCOSE 154 mg/dl (70-220); MAGNESIUM 2.1 mg/dl (1.7-2.5); PHOSPHORUS 4.3 mg/dl (2.5-4.9); POTASSIUM 4.1 mmol/L (3.5-5.1); SODIUM 142 mmol/L (135-144)
[2017-10-19] MEDS: HYDROCODONE/APAP (5/325) TAB PO (08:29)
[2017-10-19] MEDS ORDERED: SOD CHLORIDE 0.9% 500 ML IV (09:00)
[2017-10-19] MEDS: SOD CHLORIDE 0.9% 1,000 ML IV (13:15)
[2017-10-19] MEDS: GABAPENTIN 100 MG CAP PO ×2 (13:16→20:14)
[2017-10-19] MEDS: ACETAMINOPHEN 325 MG TAB PO (17:12)
[2017-10-19] MEDS: ATORVASTATIN 80 MG TAB PO (20:14)
[2017-10-19] MEDS: INSULIN GLARGINE [LANtus] 3 ML PEN SC (22:14)
[2017-10-20] MEDS: PANTOPRAZOLE 40 MG INJ IV (05:38)
[2017-10-20 07:02] LABS: ADD MAN DIFF? NO
[2017-10-20 07:14] LABS: BASOPHIL # 0.1 10^3/ul (0.0-0.1); BASOPHILS % 0.8 % (0.0-2.0); EOSINOPHILS # 0.5 10^3/ul (0.0-0.5); EOSINOPHILS % 4.3 % (0.0-7.0); HEMATOCRIT 30.5 % (37.0-47.0); HEMOGLOBIN 9.7 g/dl (12.0-16.0); LYMPHOCYTES # 2.3 10^3/ul (0.8-2.9); LYMPHOCYTES % 20.7 % (15.0-51.0); MEAN CORPUSCULAR HEMOGLOBIN 26.6 pg (29.0-33.0); MEAN CORPUSCULAR HGB CONC 31.8 g/dl (32.0-37.0); MEAN CORPUSCULAR VOLUME 83.6 fl (82.0-101.0); MEAN PLATELET VOLUME 12.6 fl (7.4-10.4); MONOCYTE # 0.9 10^3/ul (0.3-0.9); MONOCYTES % 8.2 % (0.0-11.0); NEUTROPHIL # 7.3 10^3/ul (1.6-7.5); NEUTROPHILS % 65.7 % (39.0-77.0); PLATELET COUNT 207 10^3/UL (140-415); RED BLOOD COUNT 3.65 10^6/ul (4.20-5.40); RED CELL DISTRIBUTION WIDTH 13.5 % (11.5-14.5)
[2017-10-20 07:37] LABS: ALBUMIN 3.3 g/dl (3.3-4.9); ANION GAP 10 (8-16); BLOOD UREA NITROGEN 43 mg/dl (7-20); CALCIUM 9.6 mg/dl (8.4-10.2); CARBON DIOXIDE 24 mmol/L (21-31); CHLORIDE 111 mmol/L (97-110); CREATININE 1.14 mg/dl (0.44-1.00); GLUCOSE 121 mg/dl (70-220); MAGNESIUM 2.2 mg/dl (1.7-2.5); PHOSPHORUS 3.8 mg/dl (2.5-4.9); POTASSIUM 4.1 mmol/L (3.5-5.1); SODIUM 141 mmol/L (135-144)
[2017-10-20] MEDS: INSULIN ASPART [NOVOLOG] 3 ML PEN SC ×4 (08:00→20:55)
[2017-10-20] MEDS: ASPIRIN 81 MG TAB PO (08:34)
[2017-10-20] MEDS: GABAPENTIN 100 MG CAP PO ×2 (08:34→12:28)
[2017-10-20] MEDS: LOSARTAN 50 MG TAB PO (08:36)
[2017-10-20] MEDS: METHIMAZOLE 5 MG TAB PO (08:38)
[2017-10-20] MEDS: ACETAMINOPHEN 325 MG TAB PO (16:43)
[2017-10-20] MEDS: LABETALOL HCL 20MG INJ IV (16:45)
[2017-10-20] MEDS: HYDROCODONE/APAP (5/325) TAB PO (17:57)
[2017-10-20] MEDS: ATORVASTATIN 80 MG TAB PO (20:54)
[2017-10-20] MEDS: GABAPENTIN 300 MG CAP PO (20:54)
[2017-10-20] MEDS: INSULIN GLARGINE [LANtus] 3 ML PEN SC (21:03)
[2017-10-21] MEDS: PANTOPRAZOLE 40 MG INJ IV (06:11)
[2017-10-21 06:21] LABS: ADD MAN DIFF? NO
[2017-10-21 06:24] LABS: BASOPHIL # 0.1 10^3/ul (0.0-0.1); BASOPHILS % 0.7 % (0.0-2.0); EOSINOPHILS # 0.4 10^3/ul (0.0-0.5); EOSINOPHILS % 3.4 % (0.0-7.0); HEMATOCRIT 32.3 % (37.0-47.0); HEMOGLOBIN 10.2 g/dl (12.0-16.0); LYMPHOCYTES # 2.3 10^3/ul (0.8-2.9); LYMPHOCYTES % 19.8 % (15.0-51.0); MEAN CORPUSCULAR HEMOGLOBIN 26.6 pg (29.0-33.0); MEAN CORPUSCULAR HGB CONC 31.6 g/dl (32.0-37.0); MEAN CORPUSCULAR VOLUME 84.1 fl (82.0-101.0); MEAN PLATELET VOLUME 12.7 fl (7.4-10.4); MONOCYTE # 1.1 10^3/ul (0.3-0.9); MONOCYTES % 9.6 % (0.0-11.0); NEUTROPHIL # 7.7 10^3/ul (1.6-7.5); NEUTROPHILS % 66.2 % (39.0-77.0); PLATELET COUNT 223 10^3/UL (140-415); RED BLOOD COUNT 3.84 10^6/ul (4.20-5.40); RED CELL DISTRIBUTION WIDTH 13.2 % (11.5-14.5)
[2017-10-21 06:24] LABS: WHITE BLOOD COUNT 11.6 10^3/ul (4.8-10.8)
[2017-10-21 07:05] LABS: ALBUMIN 3.5 g/dl (3.3-4.9); ANION GAP 12 (8-16); BLOOD UREA NITROGEN 38 mg/dl (7-20); CALCIUM 9.8 mg/dl (8.4-10.2); CARBON DIOXIDE 24 mmol/L (21-31); CHLORIDE 110 mmol/L (97-110); CREATININE 1.11 mg/dl (0.44-1.00); GLUCOSE 139 mg/dl (70-220); PHOSPHORUS 4.1 mg/dl (2.5-4.9); POTASSIUM 4.3 mmol/L (3.5-5.1); SODIUM 142 mmol/L (135-144)
[2017-10-21] MEDS: ASPIRIN 81 MG TAB PO (09:06)
[2017-10-21] MEDS: METHIMAZOLE 5 MG TAB PO (09:06)
[2017-10-21] MEDS: GABAPENTIN 300 MG CAP PO ×3 (09:06→20:45)
[2017-10-21] MEDS: LOSARTAN 50 MG TAB PO (09:06)
[2017-10-21] MEDS: HYDROCODONE/APAP (5/325) TAB PO (09:09)
[2017-10-21] MEDS: INSULIN ASPART [NOVOLOG] 3 ML PEN SC ×4 (09:10→20:44)
[2017-10-21] MEDS: ATORVASTATIN 80 MG TAB PO (20:45)
[2017-10-21] MEDS: AMLODIPINE 5 MG TAB PO (20:45)
[2017-10-21] MEDS: INSULIN GLARGINE [LANtus] 3 ML PEN SC (20:50)
[2017-10-22] MEDS: PANTOPRAZOLE 40 MG INJ IV (06:33)
[2017-10-22] MEDS: INSULIN ASPART [NOVOLOG] 3 ML PEN SC ×4 (08:48→21:27)
[2017-10-22] MEDS: LOSARTAN 50 MG TAB PO (08:50)
[2017-10-22] MEDS: ASPIRIN 81 MG TAB PO (08:50)
[2017-10-22] MEDS: GABAPENTIN 300 MG CAP PO ×3 (08:50→21:25)
[2017-10-22] MEDS: METHIMAZOLE 5 MG TAB PO (08:50)
[2017-10-22] MEDS: DOCUSATE SODIUM 100 MG CAP PO (09:03)
[2017-10-22] MEDS: ACETAMINOPHEN 325 MG TAB PO (10:45)
[2017-10-22] MEDS: ATORVASTATIN 80 MG TAB PO (21:24)
[2017-10-22] MEDS: AMLODIPINE 5 MG TAB PO (21:25)
[2017-10-22] MEDS: INSULIN GLARGINE [LANtus] 3 ML PEN SC (21:26)
[2017-10-23] MEDS: PANTOPRAZOLE 40 MG INJ IV (05:24)
[2017-10-23] MEDS: INSULIN ASPART [NOVOLOG] 3 ML PEN SC ×4 (08:30→21:07)
[2017-10-23 08:45] LABS: ADD MAN DIFF? NO
[2017-10-23 08:52] LABS: WHITE BLOOD COUNT 18.8 10^3/ul (4.8-10.8)
[2017-10-23 08:52] LABS: BASOPHIL # 0.1 10^3/ul (0.0-0.1); BASOPHILS % 0.4 % (0.0-2.0); EOSINOPHILS % 0.2 % (0.0-7.0); HEMATOCRIT 34.3 % (37.0-47.0); HEMOGLOBIN 10.9 g/dl (12.0-16.0); LYMPHOCYTES # 1.4 10^3/ul (0.8-2.9); LYMPHOCYTES % 7.6 % (15.0-51.0); MEAN CORPUSCULAR HEMOGLOBIN 26.8 pg (29.0-33.0); MEAN CORPUSCULAR HGB CONC 31.8 g/dl (32.0-37.0); MEAN CORPUSCULAR VOLUME 84.3 fl (82.0-101.0); MEAN PLATELET VOLUME 12.8 fl (7.4-10.4); MONOCYTE # 1.4 10^3/ul (0.3-0.9); MONOCYTES % 7.3 % (0.0-11.0); NEUTROPHIL # 15.8 10^3/ul (1.6-7.5); NEUTROPHILS % 83.8 % (39.0-77.0); PLATELET COUNT 284 10^3/UL (140-415); RED BLOOD COUNT 4.07 10^6/ul (4.20-5.40); RED CELL DISTRIBUTION WIDTH 13.3 % (11.5-14.5)
[2017-10-23 09:16] LABS: ANION GAP 15 (8-16); BLOOD UREA NITROGEN 42 mg/dl (7-20); CALCIUM 10.2 mg/dl (8.4-10.2); CARBON DIOXIDE 22 mmol/L (21-31); CHLORIDE 110 mmol/L (97-110); CREATININE 1.18 mg/dl (0.44-1.00); GLUCOSE 188 mg/dl (70-220); MAGNESIUM 2.1 mg/dl (1.7-2.5); PHOSPHORUS 3.8 mg/dl (2.5-4.9); POTASSIUM 4.2 mmol/L (3.5-5.1); SODIUM 143 mmol/L (135-144)
[2017-10-23] MEDS: DOCUSATE SODIUM 100 MG CAP PO (09:31)
[2017-10-23] MEDS: HYDROCODONE/APAP (5/325) TAB PO (09:32)
[2017-10-23] MEDS: METHIMAZOLE 5 MG TAB PO (09:32)
[2017-10-23] MEDS: LOSARTAN 50 MG TAB PO (09:33)
[2017-10-23] MEDS: ASPIRIN 81 MG TAB PO (09:33)
[2017-10-23] MEDS: MAGNESIUM HYDROXIDE 30ML CUP PO (09:33)
[2017-10-23] MEDS: GABAPENTIN 300 MG CAP PO ×3 (09:33→21:05)
[2017-10-23] MEDS: CLONIDINE 0.1 MG/24 HR PATCH TRANSDERM (12:40)
[2017-10-23] MEDS: ATORVASTATIN 80 MG TAB PO (21:05)
[2017-10-23] MEDS: AMLODIPINE 5 MG TAB PO (21:06)
[2017-10-23] MEDS: INSULIN GLARGINE [LANtus] 3 ML PEN SC (21:09)
[2017-10-24] MEDS: PANTOPRAZOLE 40 MG INJ IV (05:15)
[2017-10-24] MEDS: ASPIRIN 81 MG TAB PO (08:33)
[2017-10-24] MEDS: METHIMAZOLE 5 MG TAB PO (08:33)
[2017-10-24] MEDS: INSULIN ASPART [NOVOLOG] 3 ML PEN SC ×4 (08:33→21:00)
[2017-10-24] MEDS: LOSARTAN 50 MG TAB PO (08:33)
[2017-10-24] MEDS: GABAPENTIN 300 MG CAP PO ×3 (08:33→21:29)
[2017-10-24 09:03] LABS: ADD MAN DIFF? NO
[2017-10-24 09:09] LABS: WHITE BLOOD COUNT 16.2 10^3/ul (4.8-10.8)
[2017-10-24 09:09] LABS: BASOPHIL # 0.1 10^3/ul (0.0-0.1); BASOPHILS % 0.5 % (0.0-2.0); EOSINOPHILS # 0.3 10^3/ul (0.0-0.5); EOSINOPHILS % 1.9 % (0.0-7.0); HEMATOCRIT 31.5 % (37.0-47.0); HEMOGLOBIN 9.9 g/dl (12.0-16.0); LYMPHOCYTES # 2.1 10^3/ul (0.8-2.9); LYMPHOCYTES % 12.9 % (15.0-51.0); MEAN CORPUSCULAR HEMOGLOBIN 26.6 pg (29.0-33.0); MEAN CORPUSCULAR HGB CONC 31.4 g/dl (32.0-37.0); MEAN CORPUSCULAR VOLUME 84.7 fl (82.0-101.0); MEAN PLATELET VOLUME 12.8 fl (7.4-10.4); MONOCYTE # 1.4 10^3/ul (0.3-0.9); MONOCYTES % 8.5 % (0.0-11.0); NEUTROPHIL # 12.2 10^3/ul (1.6-7.5); NEUTROPHILS % 75.5 % (39.0-77.0); PLATELET COUNT 294 10^3/UL (140-415); RED BLOOD COUNT 3.72 10^6/ul (4.20-5.40); RED CELL DISTRIBUTION WIDTH 13.5 % (11.5-14.5)
[2017-10-24 09:38] LABS: ANION GAP 13 (8-16); BLOOD UREA NITROGEN 52 mg/dl (7-20); CALCIUM 9.9 mg/dl (8.4-10.2); CARBON DIOXIDE 23 mmol/L (21-31); CHLORIDE 109 mmol/L (97-110); CREATININE 1.29 mg/dl (0.44-1.00); GLUCOSE 162 mg/dl (70-220); MAGNESIUM 2.1 mg/dl (1.7-2.5); PHOSPHORUS 3.8 mg/dl (2.5-4.9); SODIUM 141 mmol/L (135-144)
[2017-10-24] MEDS: morphine LIQ (10 MG/5 ML) CUP PO (10:25)
[2017-10-24] MEDS: LINAGLIPTIN 5 MG TABLET PO (14:56)
[2017-10-24] MEDS: ACETAMINOPHEN 325 MG TAB PO (17:15)
[2017-10-24] MEDS: AMLODIPINE 5 MG TAB PO (21:00)
[2017-10-24] MEDS: ATORVASTATIN 80 MG TAB PO (21:29)
[2017-10-24] MEDS: INSULIN GLARGINE [LANtus] 3 ML PEN SC (21:35)
[2017-10-24] MEDS ORDERED: VANCOMYCIN IV PER PHARMACY XX (23:00)
[2017-10-24 23:15] LABS: AADO2 Arterial 31.8 mmHg (7.0-24.0); Allen Test ACCEPTAB; Arterial Base Excess -5.9 mmol/L (-3.0-3); Arterial Blood Gas Oxygen Sat 94.6 mmHG (95.0-100.0); Arterial COHb 0.3 % (0.0-3.0); Arterial Fraction of Oxyhgb 93.8 % (93.0-99.0); Arterial MetHb 0.5 % (0.0-1.5); Arterial Total Hemglobin 10.7 g/dl (12.0-18.0); Arterial pCO2 34.9 mmhg (35-45); MODE ROOM AIR; Site Right Radial
[2017-10-24] MEDS: CEFEPIME 1GM/50 ML (PMX) 50 ML IVPB (23:37)
[2017-10-25] MEDS: VANCOMYCIN 1.5 GM in SOD CHLORIDE 0.9% 250 ML IVPB (00:08)
[2017-10-25] MEDS: PANTOPRAZOLE 40 MG INJ IV (06:07)
[2017-10-25] MEDS: INSULIN ASPART [NOVOLOG] 3 ML PEN SC ×4 (08:00→20:36)
[2017-10-25 08:40] LABS: ADD MAN DIFF? NO
[2017-10-25 08:43] LABS: ABNORMAL IP MESSAGE 1; BASOPHIL # 0.1 10^3/ul (0.0-0.1); BASOPHILS % 0.6 % (0.0-2.0); EOSINOPHILS # 0.5 10^3/ul (0.0-0.5); EOSINOPHILS % 3.4 % (0.0-7.0); HEMATOCRIT 32.5 % (37.0-47.0); MEAN CORPUSCULAR HEMOGLOBIN 26.1 pg (29.0-33.0); MEAN CORPUSCULAR HGB CONC 30.8 g/dl (32.0-37.0); MEAN CORPUSCULAR VOLUME 84.9 fl (82.0-101.0); MEAN PLATELET VOLUME 13.1 fl (7.4-10.4); MONOCYTES % 7.2 % (0.0-11.0); NEUTROPHIL # 10.6 10^3/ul (1.6-7.5); NEUTROPHILS % 74.2 % (39.0-77.0); PLATELET COUNT 267 10^3/UL (140-415); RED BLOOD COUNT 3.83 10^6/ul (4.20-5.40); RED CELL DISTRIBUTION WIDTH 13.7 % (11.5-14.5)
[2017-10-25 08:43] LABS: WHITE BLOOD COUNT 14.3 10^3/ul (4.8-10.8)
[2017-10-25] MEDS: GABAPENTIN 300 MG CAP PO ×3 (08:47→20:35)
[2017-10-25 08:48] LABS: POSITIVE DIFF @See below
[2017-10-25] MEDS: ASPIRIN 81 MG TAB PO (08:49)
[2017-10-25] MEDS: LINAGLIPTIN 5 MG TABLET PO (08:49)
[2017-10-25] MEDS: METHIMAZOLE 5 MG TAB PO (08:49)
[2017-10-25] MEDS: LOSARTAN 50 MG TAB PO (08:49)
[2017-10-25] MEDS: CEFEPIME 1GM/50 ML (PMX) 50 ML IVPB (08:49)
[2017-10-25 09:12] LABS: ANION GAP 15 (8-16); BLOOD UREA NITROGEN 64 mg/dl (7-20); CALCIUM 9.2 mg/dl (8.4-10.2); CARBON DIOXIDE 20 mmol/L (21-31); CHLORIDE 106 mmol/L (97-110); CREATININE 1.58 mg/dl (0.44-1.00); GLUCOSE 145 mg/dl (70-220); PHOSPHORUS 5.4 mg/dl (2.5-4.9); POTASSIUM 4.2 mmol/L (3.5-5.1); SODIUM 137 mmol/L (135-144)
[2017-10-25 09:49] LABS: HEMOGLOBIN A1C 7.7 % (0-5.9)
[2017-10-25 10:09] LABS: ADD UMIC YES; UR ASCORBIC ACID NEGATIVE (NEGATIVE); UR BACTERIA FEW /HPF (NONE SEEN); UR BILIRUBIN (Dip) NEGATIVE (NEGATIVE); UR BLOOD (Dip) NEGATIVE (NEGATIVE); UR CLARITY SLIGHTLY CLOUDY (CLEAR); UR COLOR YELLOW (YELLOW); UR GLUCOSE (Dip) NEGATIVE (NEGATIVE); UR KETONES (Dip) NEGATIVE (NEGATIVE); UR LEUKOCYTE ESTERASE (Dip) 3+ Leu/ul (NEGATIVE); UR NITRITE (Dip) NEGATIVE (NEGATIVE); UR RBC 2 /HPF (0-5); UR SPECIFIC GRAVITY (Dip) 1.014 (1.003-1.030); UR SQUAMOUS EPITHELIAL CELL FEW /HPF (FEW); UR TOTAL PROTEIN (Dip) NEGATIVE (NEGATIVE); UR UROBILINOGEN (Dip) NEGATIVE (NEGATIVE); UR WBC 63 /HPF (0-5)
[2017-10-25] MEDS: HYDROCODONE/APAP (5/325) TAB PO (11:38)
[2017-10-25] MEDS: LEVOFLOXACIN 500 MG TAB PO (11:38)
[2017-10-25] MEDS: SOD CHLORIDE 0.9% 1,000 ML IV (11:40)
[2017-10-25] MEDS: ACETAMINOPHEN 325 MG TAB PO (17:16)
[2017-10-25] MEDS: ATORVASTATIN 80 MG TAB PO (20:35)
[2017-10-25] MEDS: INSULIN GLARGINE [LANtus] 3 ML PEN SC (20:46)
[2017-10-26] MEDS: ACETAMINOPHEN 325 MG TAB PO (00:44)
[2017-10-26] MEDS: SOD CHLORIDE 0.9% 1,000 ML IV ×2 (01:04→06:49)
[2017-10-26] MEDS: HYDROCODONE/APAP (5/325) TAB PO ×2 (04:02→12:44)
[2017-10-26] MEDS: PANTOPRAZOLE 40 MG INJ IV (05:18)
[2017-10-26] MEDS: INSULIN ASPART [NOVOLOG] 3 ML PEN SC ×2 (08:00→12:00)
[2017-10-26] MEDS: ASPIRIN 81 MG TAB PO (09:27)
[2017-10-26] MEDS: LOSARTAN 50 MG TAB PO (09:28)
[2017-10-26 09:29] LABS: ADD MAN DIFF? NO
[2017-10-26] MEDS: GABAPENTIN 300 MG CAP PO ×2 (09:29→12:44)
[2017-10-26] MEDS: LINAGLIPTIN 5 MG TABLET PO (09:30)
[2017-10-26] MEDS: METHIMAZOLE 5 MG TAB PO (09:30)
[2017-10-26 09:34] LABS: WHITE BLOOD COUNT 12.3 10^3/ul (4.8-10.8)
[2017-10-26 09:34] LABS: BASOPHIL # 0.1 10^3/ul (0.0-0.1); BASOPHILS % 0.5 % (0.0-2.0); EOSINOPHILS # 0.5 10^3/ul (0.0-0.5); EOSINOPHILS % 3.6 % (0.0-7.0); HEMATOCRIT 30.3 % (37.0-47.0); HEMOGLOBIN 9.4 g/dl (12.0-16.0); LYMPHOCYTES # 1.8 10^3/ul (0.8-2.9); LYMPHOCYTES % 14.3 % (15.0-51.0); MEAN CORPUSCULAR HEMOGLOBIN 26.3 pg (29.0-33.0); MEAN CORPUSCULAR VOLUME 84.9 fl (82.0-101.0); MEAN PLATELET VOLUME 12.3 fl (7.4-10.4); MONOCYTE # 1.2 10^3/ul (0.3-0.9); MONOCYTES % 9.8 % (0.0-11.0); NEUTROPHIL # 8.8 10^3/ul (1.6-7.5); NEUTROPHILS % 71.2 % (39.0-77.0); PLATELET COUNT 327 10^3/UL (140-415); RED BLOOD COUNT 3.57 10^6/ul (4.20-5.40); RED CELL DISTRIBUTION WIDTH 13.3 % (11.5-14.5)
[2017-10-26 09:55] LABS: ANION GAP 14 (8-16); BLOOD UREA NITROGEN 54 mg/dl (7-20); CALCIUM 9.1 mg/dl (8.4-10.2); CARBON DIOXIDE 18 mmol/L (21-31); CHLORIDE 111 mmol/L (97-110); CREATININE 1.18 mg/dl (0.44-1.00); GLUCOSE 127 mg/dl (70-220); MAGNESIUM 2.1 mg/dl (1.7-2.5); PHOSPHORUS 4.2 mg/dl (2.5-4.9); POTASSIUM 4.2 mmol/L (3.5-5.1); SODIUM 139 mmol/L (135-144)
[2017-10-26] MEDS ORDERED: VANCOMYCIN 750 MG in DEXTROSE 5% 150 ML IVPB (12:00)
[2017-10-27] MEDS ORDERED: VANCOMYCIN 1 GM 250 ML IVPB
[2017-10-27] MEDS ORDERED: LEVOFLOXACIN 500 MG TAB PO (06:00)
== END 2017-10-26 16:16 | DRG 64 ==
LOC: MS4 11:00
PROVIDERS: Internal Medicine
DX: I63.9 Cerebral infarction, unspecified (principal); G93.40 Encephalopathy, unspecified; I69.353 Hemiplegia and hemiparesis following cerebral infarction affecting right non-dominant side; N17.9 Acute kidney failure, unspecified; N39.0 Urinary tract infection, site not specified; I95.9 Hypotension, unspecified; E11.42 Type 2 diabetes mellitus with diabetic polyneuropathy; D63.8 Anemia in other chronic diseases classified elsewhere; E05.90 Thyrotoxicosis, unspecified without thyrotoxic crisis or storm; I10 Essential (primary) hypertension; E78.5 Hyperlipidemia, unspecified; I16.0 Hypertensive urgency; E66.9 Obesity, unspecified; Z68.33 Body mass index [BMI] 33.0-33.9, adult; I69.392 Facial weakness following cerebral infarction; K59.00 Constipation, unspecified; Z79.4 Long term (current) use of insulin; Z79.82 Long term (current) use of aspirin; Z91.81 History of falling
CPT/HCPCS: 36600; 71045; 80048; 80053; 80069; 81001; 82803; 82962; 83036; 83735; 84100; 85025; 85049; 85610; 85670; 85730; 92507; 92526; 92610; 93005; 97110; 97163; 97166; 97530; 97535

== ENCOUNTER 2017-12-10 07:02 | Emergency (ER) | payer MEDICARE, OTHER ==
[2017-12-10 08:23] LABS: ADD MAN DIFF? NO
[2017-12-10] MEDS: HYDROmorphONE 1 MG/ML SYG IV (08:24)
[2017-12-10] MEDS: METOCLOPRAMIDE 10 MG INJ IV (08:24)
[2017-12-10] MEDS: ONDANSETRON 4 MG INJ IV (08:24)
[2017-12-10] MEDS: DIPHENHYDRAMINE 50 MG INJ IV (08:24)
[2017-12-10 08:25] LABS: BASOPHIL # 0.1 10^3/ul (0.0-0.1); BASOPHILS % 0.9 % (0.0-2.0); EOSINOPHILS # 0.3 10^3/ul (0.0-0.5); EOSINOPHILS % 2.9 % (0.0-7.0); HEMATOCRIT 32.8 % (37.0-47.0); LYMPHOCYTES # 1.9 10^3/ul (0.8-2.9); LYMPHOCYTES % 18.1 % (15.0-51.0); MEAN CORPUSCULAR HEMOGLOBIN 26.9 pg (29.0-33.0); MEAN CORPUSCULAR HGB CONC 30.5 g/dl (32.0-37.0); MEAN CORPUSCULAR VOLUME 88.2 fl (82.0-101.0); MONOCYTE # 0.8 10^3/ul (0.3-0.9); MONOCYTES % 7.5 % (0.0-11.0); NEUTROPHIL # 7.5 10^3/ul (1.6-7.5); NEUTROPHILS % 70.2 % (39.0-77.0); PLATELET COUNT 247 10^3/UL (140-415); RED BLOOD COUNT 3.72 10^6/ul (4.20-5.40); RED CELL DISTRIBUTION WIDTH 15.4 % (11.5-14.5)
[2017-12-10 08:25] LABS: WHITE BLOOD COUNT 10.7 10^3/ul (4.8-10.8)
[2017-12-10 08:44] LABS: INR 0.91; PROTIME 12.3 Sec (11.9-14.9)
[2017-12-10 08:45] LABS: ANION GAP 12 (8-16); BLOOD UREA NITROGEN 17 mg/dl (7-20); CALCIUM 9.3 mg/dl (8.4-10.2); CARBON DIOXIDE 21 mmol/L (21-31); CHLORIDE 116 mmol/L (97-110); GLUCOSE 154 mg/dl (70-220); PARTIAL THROMBOPLASTIN TIME 29.1 Sec (25.0-35.0); POTASSIUM 4.2 mmol/L (3.5-5.1); SODIUM 145 mmol/L (135-144)
[2017-12-10 08:56] LABS: TROPONIN-I 0.011 ng/ml (0.000-0.120)
== END 2017-12-10 13:25 | disposition home or self-care (01) ==
LOC: E/R 07:02
DX: R51 Headache (principal); I10 Essential (primary) hypertension; R07.9 Chest pain, unspecified; R40.2142 Coma scale, eyes open, spontaneous, at arrival to emergency department; R40.2362 Coma scale, best motor response, obeys commands, at arrival to emergency department; R40.2252 Coma scale, best verbal response, oriented, at arrival to emergency department; Z79.82 Long term (current) use of aspirin; Z79.84 Long term (current) use of oral hypoglycemic drugs
CPT/HCPCS: 36415; 70450; 71045; 80048; 84484; 85025; 85610; 85730; 96374; 96375; 99285-25

== ENCOUNTER 2017-12-10 23:57 | Inpatient (IN) | payer MEDICARE, OTHER ==
[2017-12-11 01:20] LABS: ADD UMIC YES; UR ASCORBIC ACID NEGATIVE (NEGATIVE); UR BILIRUBIN (Dip) NEGATIVE (NEGATIVE); UR BLOOD (Dip) 2+ mg/dL (NEGATIVE); UR CLARITY CLEAR (CLEAR); UR COLOR STRAW (YELLOW); UR GLUCOSE (Dip) NEGATIVE (NEGATIVE); UR KETONES (Dip) NEGATIVE (NEGATIVE); UR LEUKOCYTE ESTERASE (Dip) TRACE Leu/ul (NEGATIVE); UR NITRITE (Dip) NEGATIVE (NEGATIVE); UR RBC 1 /HPF (0-5); UR TOTAL PROTEIN (Dip) 1+ mg/dl (NEGATIVE); UR UROBILINOGEN (Dip) NEGATIVE (NEGATIVE); UR WBC 4 /HPF (0-5)
[2017-12-11] MEDS: ONDANSETRON 4 MG INJ IV (01:21)
[2017-12-11] MEDS: SOD CHLORIDE 0.9% 500 ML IV (01:23)
[2017-12-11 01:29] LABS: ADD MAN DIFF? NO
[2017-12-11 01:38] LABS: BASOPHIL # 0.1 10^3/ul (0.0-0.1); BASOPHILS % 0.8 % (0.0-2.0); EOSINOPHILS # 0.3 10^3/ul (0.0-0.5); EOSINOPHILS % 1.9 % (0.0-7.0); HEMATOCRIT 30.5 % (37.0-47.0); HEMOGLOBIN 9.5 g/dl (12.0-16.0); LYMPHOCYTES # 2.3 10^3/ul (0.8-2.9); MEAN CORPUSCULAR HEMOGLOBIN 27.4 pg (29.0-33.0); MEAN CORPUSCULAR HGB CONC 31.1 g/dl (32.0-37.0); MEAN CORPUSCULAR VOLUME 87.9 fl (82.0-101.0); MEAN PLATELET VOLUME 11.8 fl (7.4-10.4); MONOCYTE # 1.1 10^3/ul (0.3-0.9); MONOCYTES % 8.6 % (0.0-11.0); NEUTROPHIL # 9.2 10^3/ul (1.6-7.5); NEUTROPHILS % 70.3 % (39.0-77.0); PLATELET COUNT 247 10^3/UL (140-415); RED BLOOD COUNT 3.47 10^6/ul (4.20-5.40); RED CELL DISTRIBUTION WIDTH 15.5 % (11.5-14.5)
[2017-12-11 01:52] LABS: ALANINE AMINOTRANSFERASE 33 IU/L (13-69); ALBUMIN 3.9 g/dl (3.3-4.9); ALBUMIN/GLOBULIN RATIO 1.21; ALKALINE PHOSPHATASE 79 IU/L (42-121); ANION GAP 12 (8-16); ASPARTATE AMINO TRANSFERASE 25 IU/L (15-46); BILIRUBIN,INDIRECT 0.7 mg/dl (0-1.1); BILIRUBIN,TOTAL 0.7 mg/dl (0.2-1.3); BLOOD UREA NITROGEN 18 mg/dl (7-20); CALCIUM 9.1 mg/dl (8.4-10.2); CARBON DIOXIDE 22 mmol/L (21-31); CHLORIDE 112 mmol/L (97-110); CREATININE 0.85 mg/dl (0.44-1.00); GLUCOSE 143 mg/dl (70-220); LIPASE 537 U/L (23-300); SODIUM 142 mmol/L (135-144); TOTAL PROTEIN 7.1 g/dl (6.1-8.1)
[2017-12-11] MEDS ORDERED: DOCUSATE SODIUM 100 MG CAP PO (05:30)
[2017-12-11] MEDS ORDERED: CEFTRIAXONE 1 GM/50 ML (PMX) 50 ML IVPB (05:30)
[2017-12-11] MEDS ORDERED: NACL 0.9% 3 ML SYG IV (05:30)
[2017-12-11] MEDS ORDERED: ONDANSETRON 4 MG INJ IV (05:30)
[2017-12-11] MEDS ORDERED: GLUCOSE GEL 15 GRAM TUBE PO ×2 (07:00)
[2017-12-11] MEDS ORDERED: GLUCOSE GEL 15 GRAM TUBE BUCCAL (07:00)
[2017-12-11] MEDS ORDERED: DEXTROSE 50% 50 ML SYRINGE IV ×2 (07:00)
[2017-12-11] MEDS ORDERED: GLUCAGON 1 MG INJ IM (07:00)
[2017-12-11] MEDS: SOD CHLORIDE 0.9% 1,000 ML IV ×4 (07:02→22:28)
[2017-12-11] MEDS: BISACODYL (EC) 5 MG TAB PO (07:36)
[2017-12-11 09:15] LABS: CHOL/HDL RATIO 2.5 RATIO; HDL CHOLESTEROL 41 mg/dl (33-92); LDL CHOLESTEROL,CALCULATED 41 mg/dl; TRIGLYCERIDES 110 mg/dl (0-149)
[2017-12-11 09:15] LABS: CHOLESTEROL 104 mg/dl (100-200)
[2017-12-11 09:23] LABS: ETHANOL < 10.0 mg/dl
[2017-12-11] MEDS: CIPROFLOXACIN 400MG/D5W 200 ML IVPB ×2 (09:56→22:09)
[2017-12-11] MEDS: GABAPENTIN 300 MG CAP PO ×3 (10:51→22:09)
[2017-12-11] MEDS: METHIMAZOLE 5 MG TAB PO (10:51)
[2017-12-11] MEDS: INSULIN ASPART [NOVOLOG] 3 ML PEN SC ×4 (11:53→23:45)
[2017-12-11] MEDS: ACETAMINOPHEN 325 MG TAB PO ×2 (13:57→22:09)
[2017-12-11] MEDS: hydrALAzine 20 MG INJ IV (15:45)
[2017-12-11 16:13] LABS: AMPHETAMINE/METHAMPHETAMINE NEGATIVE (NEGATIVE); BARBITURATES NEGATIVE (NEGATIVE); BENZODIAZEPINES NEGATIVE (NEGATIVE); CANNABINOIDS NEGATIVE (NEGATIVE); COCAINE NEGATIVE (NEGATIVE); OPIATES POSITIVE (NEGATIVE)
[2017-12-11] MEDS: ATORVASTATIN 80 MG TAB PO (22:09)
[2017-12-12] MEDS: SOD CHLORIDE 0.9% 1,000 ML IV ×5 (01:17→22:11)
[2017-12-12] MEDS: ACCU-CHEK XX (02:00)
[2017-12-12] MEDS: INSULIN ASPART [NOVOLOG] 3 ML PEN SC ×5 (03:00→17:00)
[2017-12-12 06:01] LABS: ADD MAN DIFF? NO
[2017-12-12 06:06] LABS: WHITE BLOOD COUNT 9.6 10^3/ul (4.8-10.8)
[2017-12-12 06:06] LABS: BASOPHIL # 0.1 10^3/ul (0.0-0.1); BASOPHILS % 0.9 % (0.0-2.0); EOSINOPHILS # 0.3 10^3/ul (0.0-0.5); EOSINOPHILS % 2.9 % (0.0-7.0); HEMATOCRIT 28.8 % (37.0-47.0); HEMOGLOBIN 8.8 g/dl (12.0-16.0); LYMPHOCYTES # 2.3 10^3/ul (0.8-2.9); LYMPHOCYTES % 24.2 % (15.0-51.0); MEAN CORPUSCULAR HEMOGLOBIN 27.1 pg (29.0-33.0); MEAN CORPUSCULAR HGB CONC 30.6 g/dl (32.0-37.0); MEAN CORPUSCULAR VOLUME 88.6 fl (82.0-101.0); MEAN PLATELET VOLUME 12.1 fl (7.4-10.4); MONOCYTE # 0.8 10^3/ul (0.3-0.9); MONOCYTES % 8.2 % (0.0-11.0); NEUTROPHIL # 6.1 10^3/ul (1.6-7.5); NEUTROPHILS % 63.6 % (39.0-77.0); PLATELET COUNT 229 10^3/UL (140-415); RED BLOOD COUNT 3.25 10^6/ul (4.20-5.40); RED CELL DISTRIBUTION WIDTH 15.5 % (11.5-14.5)
[2017-12-12 06:30] LABS: LIPASE 290 U/L (23-300)
[2017-12-12 06:36] LABS: ALANINE AMINOTRANSFERASE 26 IU/L (13-69); ALBUMIN 3.1 g/dl (3.3-4.9); ALBUMIN/GLOBULIN RATIO 1.14; ALKALINE PHOSPHATASE 58 IU/L (42-121); ANION GAP 7 (8-16); ASPARTATE AMINO TRANSFERASE 22 IU/L (15-46); BILIRUBIN,INDIRECT 0.2 mg/dl (0-1.1); BILIRUBIN,TOTAL 0.2 mg/dl (0.2-1.3); CALCIUM 8.8 mg/dl (8.4-10.2); CARBON DIOXIDE 21 mmol/L (21-31); CHLORIDE 119 mmol/L (97-110); CREATININE 0.74 mg/dl (0.44-1.00); GLUCOSE 109 mg/dl (70-220); MAGNESIUM 1.5 mg/dl (1.7-2.5); POTASSIUM 3.9 mmol/L (3.5-5.1); SODIUM 143 mmol/L (135-144); TOTAL PROTEIN 5.8 g/dl (6.1-8.1)
[2017-12-12 07:15] LABS: THYROID STIMULATING HORMONE < 0.015 MIU/L (0.465-4.680)
[2017-12-12 08:17] LABS: BLOOD UREA NITROGEN 9 mg/dl (7-20)
[2017-12-12] MEDS: GABAPENTIN 300 MG CAP PO ×3 (08:40→21:13)
[2017-12-12] MEDS: CIPROFLOXACIN 400MG/D5W 200 ML IVPB ×2 (08:40→22:11)
[2017-12-12] MEDS: METHIMAZOLE 5 MG TAB PO ×2 (08:40→19:44)
[2017-12-12 11:04] LABS: HEMOGLOBIN A1C 7.2 % (0-5.9)
[2017-12-12] MEDS: ACETAMINOPHEN 325 MG TAB PO ×2 (12:07→21:13)
[2017-12-12] MEDS: metFORMIN 500 MG TAB PO (19:44)
[2017-12-12] MEDS: MAGNESIUM SULFATE 2 GM/50 ML 50 ML IVPB (19:44)
[2017-12-12] MEDS ORDERED: INSULIN ASPART [NOVOLOG] 3 ML PEN SC (21:00)
[2017-12-12] MEDS: Insulin NOVOLOG SS MILD Algorithm (SS with meals and bedtime) SC (21:00)
[2017-12-12] MEDS: ATORVASTATIN 80 MG TAB PO (21:13)
[2017-12-12] MEDS: METOPROLOL 25 MG TAB PO (21:15)
[2017-12-13] MEDS: ACCUCHECK AT 2AM (Patients on SS coverage) XX (01:40)
[2017-12-13] MEDS: SOD CHLORIDE 0.9% 1,000 ML IV ×2 (03:57→05:32)
[2017-12-13] MEDS: ACETAMINOPHEN 325 MG TAB PO ×2 (05:31→11:51)
[2017-12-13 05:46] LABS: ADD MAN DIFF? NO
[2017-12-13 05:57] LABS: BASOPHIL # 0.1 10^3/ul (0.0-0.1); BASOPHILS % 0.9 % (0.0-2.0); EOSINOPHILS # 0.3 10^3/ul (0.0-0.5); EOSINOPHILS % 3.8 % (0.0-7.0); HEMATOCRIT 28.1 % (37.0-47.0); HEMOGLOBIN 8.4 g/dl (12.0-16.0); LYMPHOCYTES # 2.3 10^3/ul (0.8-2.9); LYMPHOCYTES % 25.4 % (15.0-51.0); MEAN CORPUSCULAR HEMOGLOBIN 26.7 pg (29.0-33.0); MEAN CORPUSCULAR HGB CONC 29.9 g/dl (32.0-37.0); MEAN CORPUSCULAR VOLUME 89.2 fl (82.0-101.0); MEAN PLATELET VOLUME 12.2 fl (7.4-10.4); MONOCYTE # 0.8 10^3/ul (0.3-0.9); MONOCYTES % 8.9 % (0.0-11.0); NEUTROPHIL # 5.4 10^3/ul (1.6-7.5); NEUTROPHILS % 60.7 % (39.0-77.0); PLATELET COUNT 227 10^3/UL (140-415); RED BLOOD COUNT 3.15 10^6/ul (4.20-5.40); RED CELL DISTRIBUTION WIDTH 15.7 % (11.5-14.5)
[2017-12-13 05:57] LABS: WHITE BLOOD COUNT 8.9 10^3/ul (4.8-10.8)
[2017-12-13 06:34] LABS: ANION GAP 9 (8-16); BLOOD UREA NITROGEN 10 mg/dl (7-20); CALCIUM 8.4 mg/dl (8.4-10.2); CARBON DIOXIDE 21 mmol/L (21-31); CHLORIDE 118 mmol/L (97-110); GLUCOSE 116 mg/dl (70-220); MAGNESIUM 2.1 mg/dl (1.7-2.5); POTASSIUM 3.6 mmol/L (3.5-5.1); SODIUM 144 mmol/L (135-144)
[2017-12-13 06:40] LABS: FREE THYROXINE INDEX (Calc) 3.46 ug/ml (0.65-3.89); T3 UPTAKE 39.8 % (23.5-40.5); T4 (THYROXINE) 8.7 ug/dl (5.5-11.0)
[2017-12-13 07:04] LABS: THYROID STIMULATING HORMONE < 0.015 MIU/L (0.465-4.680)
[2017-12-13] MEDS: Insulin NOVOLOG SS MILD Algorithm (SS with meals and bedtime) SC ×2 (08:00→12:00)
[2017-12-13] MEDS: GABAPENTIN 300 MG CAP PO ×2 (08:06→16:12)
[2017-12-13] MEDS: metFORMIN 500 MG TAB PO (08:06)
[2017-12-13] MEDS: METHIMAZOLE 5 MG TAB PO (08:06)
[2017-12-13] MEDS: CIPROFLOXACIN 400MG/D5W 200 ML IVPB (08:07)
[2017-12-13] MEDS: METOPROLOL 25 MG TAB PO (08:07)
[2017-12-13] MEDS ORDERED: LINAGLIPTIN 5 MG TABLET PO (09:00)
[2017-12-13] MEDS: LISINOPRIL 10 MG TAB PO (11:51)
[2017-12-13] MEDS: MULTIVITAMINS/MINERALS TAB PO (11:51)
== END 2017-12-13 17:40 | disposition home or self-care (01) | DRG 439 ==
LOC: MS2 12-11 21:03 → E/R 23:57 → MS2 12-11 04:47
DX: K85.90 Acute pancreatitis without necrosis or infection, unspecified (principal); N39.0 Urinary tract infection, site not specified; I69.354 Hemiplegia and hemiparesis following cerebral infarction affecting left non-dominant side; E05.90 Thyrotoxicosis, unspecified without thyrotoxic crisis or storm; D64.9 Anemia, unspecified; E11.9 Type 2 diabetes mellitus without complications; E78.5 Hyperlipidemia, unspecified; I10 Essential (primary) hypertension; Z79.4 Long term (current) use of insulin; I69.392 Facial weakness following cerebral infarction; Z87.891 Personal history of nicotine dependence
CPT/HCPCS: 36415; 70450; 71045; 74176; 76775; 80048; 80053; 80061; 80307; 81001; 82962; 83036; 83690; 83735; 84436; 84443; 84479; 84484; 85025; 85610; 85730; 93005; 96374; 96375; 99285-25

== ENCOUNTER 2017-12-14 09:47 | Emergency (ER) | payer MEDICARE, OTHER ==
[2017-12-14] MEDS: KETOROLAC 15 MG INJ IV (11:12)
[2017-12-14] MEDS: SOD CHLORIDE 0.9% 500 ML IV (11:13)
[2017-12-14 11:14] LABS: ADD MAN DIFF? NO
[2017-12-14 11:21] LABS: BASOPHIL # 0.1 10^3/ul (0.0-0.1); EOSINOPHILS # 0.1 10^3/ul (0.0-0.5); EOSINOPHILS % 0.9 % (0.0-7.0); HEMATOCRIT 31.4 % (37.0-47.0); HEMOGLOBIN 9.8 g/dl (12.0-16.0); LYMPHOCYTES # 1.7 10^3/ul (0.8-2.9); LYMPHOCYTES % 15.4 % (15.0-51.0); MEAN CORPUSCULAR HEMOGLOBIN 27.5 pg (29.0-33.0); MEAN CORPUSCULAR HGB CONC 31.2 g/dl (32.0-37.0); MONOCYTE # 0.7 10^3/ul (0.3-0.9); MONOCYTES % 6.6 % (0.0-11.0); NEUTROPHIL # 8.3 10^3/ul (1.6-7.5); NEUTROPHILS % 75.6 % (39.0-77.0); PLATELET COUNT 282 10^3/UL (140-415); RED BLOOD COUNT 3.57 10^6/ul (4.20-5.40); RED CELL DISTRIBUTION WIDTH 15.4 % (11.5-14.5)
[2017-12-14 11:40] LABS: ALANINE AMINOTRANSFERASE 32 IU/L (13-69); ALBUMIN 3.7 g/dl (3.3-4.9); ALBUMIN/GLOBULIN RATIO 1.19; ALKALINE PHOSPHATASE 72 IU/L (42-121); ANION GAP 16 (8-16); ASPARTATE AMINO TRANSFERASE 38 IU/L (15-46); BILIRUBIN,INDIRECT 0.5 mg/dl (0-1.1); BILIRUBIN,TOTAL 0.5 mg/dl (0.2-1.3); BLOOD UREA NITROGEN 10 mg/dl (7-20); CALCIUM 9.3 mg/dl (8.4-10.2); CARBON DIOXIDE 19 mmol/L (21-31); CHLORIDE 112 mmol/L (97-110); CREATININE 0.68 mg/dl (0.44-1.00); GLUCOSE 165 mg/dl (70-220); LIPASE 360 U/L (23-300); SODIUM 143 mmol/L (135-144); TOTAL PROTEIN 6.8 g/dl (6.1-8.1)
[2017-12-14 11:51] LABS: INR 0.93; PROTIME 12.6 Sec (11.9-14.9)
[2017-12-14 12:53] LABS: ADD UMIC YES; UR ASCORBIC ACID NEGATIVE (NEGATIVE); UR BACTERIA FEW /HPF (NONE SEEN); UR BILIRUBIN (Dip) NEGATIVE (NEGATIVE); UR BLOOD (Dip) NEGATIVE (NEGATIVE); UR CLARITY CLEAR (CLEAR); UR COLOR STRAW (YELLOW); UR GLUCOSE (Dip) 1+ mg/dL (NEGATIVE); UR KETONES (Dip) NEGATIVE (NEGATIVE); UR LEUKOCYTE ESTERASE (Dip) NEGATIVE Leu/ul (NEGATIVE); UR NITRITE (Dip) NEGATIVE (NEGATIVE); UR RBC 1 /HPF (0-5); UR SPECIFIC GRAVITY (Dip) 1.005 (1.003-1.030); UR TOTAL PROTEIN (Dip) 1+ mg/dl (NEGATIVE); UR UROBILINOGEN (Dip) NEGATIVE (NEGATIVE); UR WBC 2 /HPF (0-5)
== END 2017-12-14 14:03 | disposition home or self-care (01) ==
LOC: E/R 09:47
DX: R51 Headache (principal); D72.829 Elevated white blood cell count, unspecified; D64.9 Anemia, unspecified; R74.8 Abnormal levels of other serum enzymes; I10 Essential (primary) hypertension; E11.9 Type 2 diabetes mellitus without complications; Z79.4 Long term (current) use of insulin; Z79.82 Long term (current) use of aspirin
CPT/HCPCS: 36415; 71045; 80053; 81001; 83690; 85025; 85610; 93005; 96374; 99285-25

== ENCOUNTER 2017-12-19 19:55 | Inpatient (IN) | payer MEDICARE, OTHER ==
[2017-12-19] MEDS: ACETAMINOPHEN 500 MG TAB PO (21:49)
[2017-12-19] MEDS: SODIUM CHLORIDE 0.9% 1L BAG IV* (21:50)
[2017-12-19] MEDS: CEFEPIME 2GM/50 ML (PMX) 50 ML IVPB (21:51)
[2017-12-19 22:06] LABS: ADD MAN DIFF? NO
[2017-12-19 22:14] LABS: BASOPHIL # 0.1 10^3/ul (0.0-0.1); BASOPHILS % 0.4 % (0.0-2.0); EOSINOPHILS % 0.1 % (0.0-7.0); HEMATOCRIT 30.9 % (37.0-47.0); HEMOGLOBIN 9.7 g/dl (12.0-16.0); LYMPHOCYTES # 1.1 10^3/ul (0.8-2.9); LYMPHOCYTES % 6.2 % (15.0-51.0); MEAN CORPUSCULAR HEMOGLOBIN 27.5 pg (29.0-33.0); MEAN CORPUSCULAR HGB CONC 31.4 g/dl (32.0-37.0); MEAN CORPUSCULAR VOLUME 87.5 fl (82.0-101.0); MEAN PLATELET VOLUME 11.6 fl (7.4-10.4); MONOCYTE # 1.4 10^3/ul (0.3-0.9); MONOCYTES % 7.6 % (0.0-11.0); NEUTROPHIL # 15.3 10^3/ul (1.6-7.5); NEUTROPHILS % 85.2 % (39.0-77.0); PLATELET COUNT 267 10^3/UL (140-415); RED BLOOD COUNT 3.53 10^6/ul (4.20-5.40); RED CELL DISTRIBUTION WIDTH 15.6 % (11.5-14.5)
[2017-12-19] MEDS: VANCOMYCIN 1 GM (PMX) 250 ML IVPB (22:20)
[2017-12-19 22:28] LABS: LACTIC ACID 1.5 mmol/L (0.5-2.0)
[2017-12-19 22:30] LABS: ALANINE AMINOTRANSFERASE 29 IU/L (13-69); ALBUMIN 4.1 g/dl (3.3-4.9); ALBUMIN/GLOBULIN RATIO 1.24; ALKALINE PHOSPHATASE 85 IU/L (42-121); ANION GAP 17 (8-16); ASPARTATE AMINO TRANSFERASE 24 IU/L (15-46); BILIRUBIN,INDIRECT 0.6 mg/dl (0-1.1); BILIRUBIN,TOTAL 0.6 mg/dl (0.2-1.3); BLOOD UREA NITROGEN 21 mg/dl (7-20); CALCIUM 9.3 mg/dl (8.4-10.2); CARBON DIOXIDE 23 mmol/L (21-31); CHLORIDE 106 mmol/L (97-110); CREATININE 1.09 mg/dl (0.44-1.00); GLUCOSE 202 mg/dl (70-220); SODIUM 142 mmol/L (135-144); TOTAL PROTEIN 7.4 g/dl (6.1-8.1)
[2017-12-19 22:41] LABS: TROPONIN-I 0.017 ng/ml (0.000-0.120)
[2017-12-19 22:57] LABS: INR 0.96; PROTIME 12.9 Sec (11.9-14.9)
[2017-12-19 22:58] LABS: PARTIAL THROMBOPLASTIN TIME 33.5 Sec (25.0-35.0)
[2017-12-20] MEDS ORDERED: ONDANSETRON 4 MG INJ IV
[2017-12-20] MEDS ORDERED: ACETAMINOPHEN 325 MG TAB PO
[2017-12-20 00:50] LABS: LACTIC ACID 0.8 mmol/L (0.5-2.0)
[2017-12-20] MEDS: SOD CHLORIDE 0.9% 500 ML IV (00:52)
[2017-12-20] MEDS ORDERED: BISACODYL (EC) 5 MG TAB PO (01:00)
[2017-12-20] MEDS ORDERED: VANCOMYCIN IV PER PHARMACY XX (01:00)
[2017-12-20] MEDS ORDERED: NACL 0.9% 3 ML SYG IV (01:00)
[2017-12-20] MEDS: SOD CHLORIDE 0.9% 1,000 ML IV (01:47)
[2017-12-20] MEDS: ACCU-CHEK XX (01:53)
[2017-12-20 03:13] LABS: LACTIC ACID 1.5 mmol/L (0.5-2.0)
[2017-12-20] MEDS: PIPER-TAZO 3.375 GM IV (PMX) 100 ML IVPB ×3 (06:19→22:06)
[2017-12-20] MEDS: ACETAMINOPHEN 325 MG TAB PO ×2 (06:20→13:20)
[2017-12-20] MEDS: INSULIN ASPART [NOVOLOG] 3 ML PEN SC ×4 (07:59→21:00)
[2017-12-20] MEDS ORDERED: ACETAMINOPHEN 500 MG TAB PO (08:00)
[2017-12-20 08:41] LABS: ADD MAN DIFF? NO
[2017-12-20 08:49] LABS: BASOPHIL # 0.1 10^3/ul (0.0-0.1); BASOPHILS % 0.4 % (0.0-2.0); EOSINOPHILS # 0.1 10^3/ul (0.0-0.5); EOSINOPHILS % 0.3 % (0.0-7.0); HEMATOCRIT 27.6 % (37.0-47.0); HEMOGLOBIN 8.5 g/dl (12.0-16.0); LYMPHOCYTES # 1.3 10^3/ul (0.8-2.9); LYMPHOCYTES % 6.1 % (15.0-51.0); MEAN CORPUSCULAR HEMOGLOBIN 27.4 pg (29.0-33.0); MEAN CORPUSCULAR HGB CONC 30.8 g/dl (32.0-37.0); MEAN PLATELET VOLUME 12.2 fl (7.4-10.4); MONOCYTE # 1.3 10^3/ul (0.3-0.9); MONOCYTES % 6.1 % (0.0-11.0); NEUTROPHIL # 17.9 10^3/ul (1.6-7.5); NEUTROPHILS % 86.4 % (39.0-77.0); PLATELET COUNT 212 10^3/UL (140-415); RED CELL DISTRIBUTION WIDTH 15.7 % (11.5-14.5)
[2017-12-20 08:49] LABS: WHITE BLOOD COUNT 20.7 10^3/ul (4.8-10.8)
[2017-12-20] MEDS: METOPROLOL 25 MG TAB PO ×2 (09:00→21:37)
[2017-12-20] MEDS: METHIMAZOLE 5 MG TAB PO (09:19)
[2017-12-20] MEDS: GABAPENTIN 300 MG CAP PO ×3 (09:19→21:37)
[2017-12-20] MEDS: ASCORBIC ACID 500 MG TAB PO ×2 (09:19→21:36)
[2017-12-20] MEDS: ASPIRIN (EC) 81 MG TAB PO (09:19)
[2017-12-20 09:28] LABS: ALANINE AMINOTRANSFERASE 29 IU/L (13-69); ALBUMIN 2.8 g/dl (3.3-4.9); ALBUMIN/GLOBULIN RATIO 0.96; ALKALINE PHOSPHATASE 56 IU/L (42-121); ANION GAP 12 (8-16); ASPARTATE AMINO TRANSFERASE 21 IU/L (15-46); BILIRUBIN,INDIRECT 0.5 mg/dl (0-1.1); BILIRUBIN,TOTAL 0.5 mg/dl (0.2-1.3); BLOOD UREA NITROGEN 20 mg/dl (7-20); CARBON DIOXIDE 19 mmol/L (21-31); CHLORIDE 114 mmol/L (97-110); CREATININE 1.03 mg/dl (0.44-1.00); GLUCOSE 172 mg/dl (70-220); POTASSIUM 3.8 mmol/L (3.5-5.1); SODIUM 141 mmol/L (135-144); TOTAL PROTEIN 5.7 g/dl (6.1-8.1)
[2017-12-20] MEDS ORDERED: GLUCOSE GEL 15 GRAM TUBE BUCCAL (10:00)
[2017-12-20] MEDS ORDERED: GLUCOSE GEL 15 GRAM TUBE PO ×2 (10:00)
[2017-12-20] MEDS ORDERED: GLUCAGON 1 MG INJ IM (10:00)
[2017-12-20] MEDS ORDERED: DEXTROSE 50% 50 ML SYRINGE IV ×2 (10:00)
[2017-12-20] MEDS: AZITHROMYCIN 500MG/NS (PMX) 250 ML IVPB (12:37)
[2017-12-20 13:57] LABS: ADD UMIC YES; UR ASCORBIC ACID 20 mg/dL (NEGATIVE); UR BACTERIA MODERATE /HPF (NONE SEEN); UR BILIRUBIN (Dip) NEGATIVE (NEGATIVE); UR BLOOD (Dip) 1+ mg/dL (NEGATIVE); UR CLARITY SLIGHTLY CLOUDY (CLEAR); UR COLOR YELLOW (YELLOW); UR GLUCOSE (Dip) NEGATIVE (NEGATIVE); UR KETONES (Dip) TRACE mg/dL (NEGATIVE); UR LEUKOCYTE ESTERASE (Dip) 3+ Leu/ul (NEGATIVE); UR NITRITE (Dip) NEGATIVE (NEGATIVE); UR RBC 3 /HPF (0-5); UR RENAL EPITHELIAL CELL FEW /HPF (NONE SEEN); UR SPECIFIC GRAVITY (Dip) 1.015 (1.003-1.030); UR SQUAMOUS EPITHELIAL CELL FEW /HPF (FEW); UR TOTAL PROTEIN (Dip) 1+ mg/dl (NEGATIVE); UR UROBILINOGEN (Dip) NEGATIVE (NEGATIVE); UR WBC 143 /HPF (0-5)
[2017-12-20] MEDS: ATORVASTATIN 80 MG TAB PO (21:36)
[2017-12-20] MEDS: LORAZEPAM 0.5 MG TAB PO (21:36)
[2017-12-20] MEDS: HYDROCODONE/APAP (5/325) TAB PO (21:36)
[2017-12-20] MEDS: VANCOMYCIN 1 GM 250 ML IVPB (22:08)
[2017-12-20] MEDS: INSULIN GLARGINE [LANTus] (100 UNITS/ML) SYG SC (22:22)
[2017-12-21] MEDS ORDERED: ZOLPIDEM 5 MG TAB PO
[2017-12-21] MEDS: ACCU-CHEK XX (02:00)
[2017-12-21] MEDS: PIPER-TAZO 3.375 GM IV (PMX) 100 ML IVPB ×3 (05:53→22:02)
[2017-12-21] MEDS: INSULIN ASPART [NOVOLOG] 3 ML PEN SC ×4 (07:49→21:00)
[2017-12-21] MEDS: ASCORBIC ACID 500 MG TAB PO ×2 (08:01→20:45)
[2017-12-21] MEDS: METHIMAZOLE 5 MG TAB PO (08:01)
[2017-12-21] MEDS: GABAPENTIN 300 MG CAP PO ×3 (08:01→20:45)
[2017-12-21] MEDS: METOPROLOL 25 MG TAB PO ×2 (08:01→20:46)
[2017-12-21] MEDS: ASPIRIN (EC) 81 MG TAB PO (08:01)
[2017-12-21 08:07] LABS: ADD MAN DIFF? NO
[2017-12-21 08:19] LABS: WHITE BLOOD COUNT 16.8 10^3/ul (4.8-10.8)
[2017-12-21 08:19] LABS: ABNORMAL IP MESSAGE 1; BASOPHIL # 0.1 10^3/ul (0.0-0.1); BASOPHILS % 0.6 % (0.0-2.0); EOSINOPHILS # 0.3 10^3/ul (0.0-0.5); EOSINOPHILS % 1.7 % (0.0-7.0); HEMATOCRIT 28.5 % (37.0-47.0); HEMOGLOBIN 8.3 g/dl (12.0-16.0); LYMPHOCYTES # 2.5 10^3/ul (0.8-2.9); LYMPHOCYTES % 14.6 % (15.0-51.0); MEAN CORPUSCULAR HEMOGLOBIN 26.4 pg (29.0-33.0); MEAN CORPUSCULAR HGB CONC 29.1 g/dl (32.0-37.0); MEAN CORPUSCULAR VOLUME 90.8 fl (82.0-101.0); MEAN PLATELET VOLUME 13.2 fl (7.4-10.4); MONOCYTE # 1.4 10^3/ul (0.3-0.9); MONOCYTES % 8.1 % (0.0-11.0); NEUTROPHIL # 12.5 10^3/ul (1.6-7.5); NEUTROPHILS % 74.4 % (39.0-77.0); PLATELET COUNT 191 10^3/UL (140-415); RED BLOOD COUNT 3.14 10^6/ul (4.20-5.40)
[2017-12-21 08:26] LABS: POSITIVE DIFF @See below
[2017-12-21 08:46] LABS: ALANINE AMINOTRANSFERASE 30 IU/L (13-69); ALBUMIN/GLOBULIN RATIO 0.96; ALKALINE PHOSPHATASE 65 IU/L (42-121); ANION GAP 12 (8-16); ASPARTATE AMINO TRANSFERASE 19 IU/L (15-46); BILIRUBIN,INDIRECT 0.4 mg/dl (0-1.1); BILIRUBIN,TOTAL 0.4 mg/dl (0.2-1.3); BLOOD UREA NITROGEN 22 mg/dl (7-20); CALCIUM 8.6 mg/dl (8.4-10.2); CARBON DIOXIDE 19 mmol/L (21-31); CHLORIDE 114 mmol/L (97-110); CREATININE 1.08 mg/dl (0.44-1.00); GLUCOSE 111 mg/dl (70-220); LIPASE 164 U/L (23-300); POTASSIUM 3.9 mmol/L (3.5-5.1); SODIUM 141 mmol/L (135-144); TOTAL PROTEIN 6.1 g/dl (6.1-8.1)
[2017-12-21 09:12] LABS: HEMOGLOBIN A1C 6.8 % (0-5.9)
[2017-12-21] MEDS: AZITHROMYCIN 500MG/NS (PMX) 250 ML IVPB (12:03)
[2017-12-21] MEDS: ACETAMINOPHEN 325 MG TAB PO (14:39)
[2017-12-21] MEDS: ATORVASTATIN 80 MG TAB PO (20:44)
[2017-12-21] MEDS: LORAZEPAM 0.5 MG TAB PO (20:45)
[2017-12-21] MEDS: HYDROCODONE/APAP (5/325) TAB PO (20:45)
[2017-12-21] MEDS: VANCOMYCIN 1 GM 250 ML IVPB (20:46)
[2017-12-21] MEDS: INSULIN GLARGINE [LANTus] (100 UNITS/ML) SYG SC (22:08)
[2017-12-22] MEDS: ACCU-CHEK XX (02:00)
[2017-12-22] MEDS: PIPER-TAZO 3.375 GM IV (PMX) 100 ML IVPB ×3 (05:16→21:27)
[2017-12-22 06:29] LABS: ADD MAN DIFF? NO
[2017-12-22 06:35] LABS: WHITE BLOOD COUNT 10.8 10^3/ul (4.8-10.8)
[2017-12-22 06:35] LABS: BASOPHIL # 0.1 10^3/ul (0.0-0.1); BASOPHILS % 0.9 % (0.0-2.0); EOSINOPHILS # 0.4 10^3/ul (0.0-0.5); EOSINOPHILS % 3.4 % (0.0-7.0); HEMATOCRIT 27.4 % (37.0-47.0); HEMOGLOBIN 8.3 g/dl (12.0-16.0); LYMPHOCYTES # 2.7 10^3/ul (0.8-2.9); MEAN CORPUSCULAR HEMOGLOBIN 26.4 pg (29.0-33.0); MEAN CORPUSCULAR HGB CONC 30.3 g/dl (32.0-37.0); MEAN CORPUSCULAR VOLUME 87.3 fl (82.0-101.0); MEAN PLATELET VOLUME 12.3 fl (7.4-10.4); MONOCYTE # 1.1 10^3/ul (0.3-0.9); MONOCYTES % 10.3 % (0.0-11.0); NEUTROPHIL # 6.5 10^3/ul (1.6-7.5); PLATELET COUNT 260 10^3/UL (140-415); RED BLOOD COUNT 3.14 10^6/ul (4.20-5.40); RED CELL DISTRIBUTION WIDTH 15.7 % (11.5-14.5)
[2017-12-22 06:53] LABS: ANION GAP 11 (8-16); BLOOD UREA NITROGEN 15 mg/dl (7-20); CALCIUM 8.8 mg/dl (8.4-10.2); CARBON DIOXIDE 21 mmol/L (21-31); CHLORIDE 113 mmol/L (97-110); CREATININE 0.88 mg/dl (0.44-1.00); GLUCOSE 125 mg/dl (70-220); MAGNESIUM 1.5 mg/dl (1.7-2.5); PHOSPHORUS 2.6 mg/dl (2.5-4.9); POTASSIUM 3.6 mmol/L (3.5-5.1); SODIUM 141 mmol/L (135-144)
[2017-12-22] MEDS: INSULIN ASPART [NOVOLOG] 3 ML PEN SC ×5 (07:55→20:28)
[2017-12-22] MEDS: METOPROLOL 25 MG TAB PO ×2 (08:45→20:22)
[2017-12-22] MEDS: ASCORBIC ACID 500 MG TAB PO ×2 (08:45→20:23)
[2017-12-22] MEDS: DOXYCYCLINE 100 MG TAB PO ×2 (08:45→20:23)
[2017-12-22] MEDS: ACETAMINOPHEN 325 MG TAB PO ×2 (08:45→21:27)
[2017-12-22] MEDS: GABAPENTIN 300 MG CAP PO ×3 (08:46→20:23)
[2017-12-22] MEDS: METHIMAZOLE 5 MG TAB PO (08:46)
[2017-12-22] MEDS: ASPIRIN (EC) 81 MG TAB PO (08:46)
[2017-12-22] MEDS: morphine 2 MG INJ IV (08:53)
[2017-12-22] MEDS: hydrALAzine 20 MG INJ IV ×2 (12:01→20:23)
[2017-12-22] MEDS: MAGNESIUM SULFATE 4 GM/100 ML 100 ML IVPB (13:50)
[2017-12-22] MEDS: LORAZEPAM 0.5 MG TAB PO (14:38)
[2017-12-22] MEDS: ATORVASTATIN 80 MG TAB PO (20:22)
[2017-12-22] MEDS: INSULIN GLARGINE [LANTus] (100 UNITS/ML) SYG SC (22:02)
[2017-12-23] MEDS: ACCU-CHEK XX (02:00)
[2017-12-23] MEDS: PIPER-TAZO 3.375 GM IV (PMX) 100 ML IVPB ×3 (05:25→20:32)
[2017-12-23 06:08] LABS: ADD MAN DIFF? NO
[2017-12-23 06:10] LABS: BASOPHIL # 0.1 10^3/ul (0.0-0.1); BASOPHILS % 1.3 % (0.0-2.0); EOSINOPHILS # 0.4 10^3/ul (0.0-0.5); EOSINOPHILS % 4.2 % (0.0-7.0); HEMATOCRIT 28.1 % (37.0-47.0); HEMOGLOBIN 8.7 g/dl (12.0-16.0); LYMPHOCYTES # 2.7 10^3/ul (0.8-2.9); LYMPHOCYTES % 29.5 % (15.0-51.0); MEAN CORPUSCULAR HEMOGLOBIN 26.9 pg (29.0-33.0); MEAN PLATELET VOLUME 12.1 fl (7.4-10.4); MONOCYTE # 0.8 10^3/ul (0.3-0.9); MONOCYTES % 9.1 % (0.0-11.0); NEUTROPHILS % 55.6 % (39.0-77.0); PLATELET COUNT 309 10^3/UL (140-415); RED BLOOD COUNT 3.23 10^6/ul (4.20-5.40); RED CELL DISTRIBUTION WIDTH 15.5 % (11.5-14.5)
[2017-12-23 06:53] LABS: MAGNESIUM 2.6 mg/dl (1.7-2.5)
[2017-12-23 06:57] LABS: ANION GAP 11 (8-16); BLOOD UREA NITROGEN 13 mg/dl (7-20); CARBON DIOXIDE 22 mmol/L (21-31); CHLORIDE 114 mmol/L (97-110); CREATININE 0.84 mg/dl (0.44-1.00); GLUCOSE 114 mg/dl (70-220); POTASSIUM 4.2 mmol/L (3.5-5.1); SODIUM 143 mmol/L (135-144)
[2017-12-23] MEDS: INSULIN ASPART [NOVOLOG] 3 ML PEN SC ×7 (07:50→20:27)
[2017-12-23] MEDS: GABAPENTIN 300 MG CAP PO ×3 (08:22→20:28)
[2017-12-23] MEDS: ASCORBIC ACID 500 MG TAB PO ×2 (08:22→20:28)
[2017-12-23] MEDS: DOXYCYCLINE 100 MG TAB PO ×2 (08:22→20:29)
[2017-12-23] MEDS: METHIMAZOLE 5 MG TAB PO (08:22)
[2017-12-23] MEDS: ASPIRIN (EC) 81 MG TAB PO (08:23)
[2017-12-23] MEDS: METOPROLOL 25 MG TAB PO ×2 (08:23→20:28)
[2017-12-23] MEDS: HYDROCODONE/APAP (5/325) TAB PO ×2 (09:15→15:40)
[2017-12-23] MEDS: ACETAMINOPHEN 325 MG TAB PO (13:42)
[2017-12-23] MEDS: hydrALAzine 20 MG INJ IV (15:44)
[2017-12-23] MEDS: morphine 2 MG INJ IV ×2 (16:52→22:19)
[2017-12-23] MEDS: LORAZEPAM 0.5 MG TAB PO (20:29)
[2017-12-23] MEDS: ATORVASTATIN 80 MG TAB PO (20:29)
[2017-12-23] MEDS: INSULIN GLARGINE [LANTus] (100 UNITS/ML) SYG SC (20:31)
[2017-12-24] MEDS: ACCU-CHEK XX (02:00)
[2017-12-24] MEDS: morphine 2 MG INJ IV ×4 (05:02→20:11)
[2017-12-24] MEDS: PIPER-TAZO 3.375 GM IV (PMX) 100 ML IVPB ×3 (05:02→21:17)
[2017-12-24] MEDS: DOCUSATE SODIUM 100 MG CAP PO (05:02)
[2017-12-24] MEDS: INSULIN ASPART [NOVOLOG] 3 ML PEN SC ×7 (07:39→20:15)
[2017-12-24] MEDS: METHIMAZOLE 5 MG TAB PO (08:18)
[2017-12-24] MEDS: ASCORBIC ACID 500 MG TAB PO ×2 (08:18→20:07)
[2017-12-24] MEDS: GABAPENTIN 300 MG CAP PO ×3 (08:18→20:07)
[2017-12-24] MEDS: ACETAMINOPHEN 325 MG TAB PO (08:18)
[2017-12-24] MEDS: ASPIRIN (EC) 81 MG TAB PO (08:19)
[2017-12-24] MEDS: DOXYCYCLINE 100 MG TAB PO ×2 (08:19→20:07)
[2017-12-24] MEDS: METOPROLOL 25 MG TAB PO ×2 (08:19→21:33)
[2017-12-24] MEDS: hydrALAzine 20 MG INJ IV (09:25)
[2017-12-24] MEDS: ONDANSETRON 4 MG INJ IV ×2 (10:21→21:17)
[2017-12-24] MEDS: HYDROCODONE/APAP (5/325) TAB PO (10:22)
[2017-12-24] MEDS: ATORVASTATIN 80 MG TAB PO (20:07)
[2017-12-24] MEDS: INSULIN GLARGINE [LANTus] (100 UNITS/ML) SYG SC (21:31)
[2017-12-25] MEDS: ACCU-CHEK XX (00:05)
[2017-12-25] MEDS: ACETAMINOPHEN 325 MG TAB PO (04:46)
[2017-12-25] MEDS: PIPER-TAZO 3.375 GM IV (PMX) 100 ML IVPB ×3 (06:16→21:01)
[2017-12-25] MEDS: INSULIN ASPART [NOVOLOG] 3 ML PEN SC ×7 (07:32→20:53)
[2017-12-25] MEDS: METHIMAZOLE 5 MG TAB PO (07:51)
[2017-12-25] MEDS: METOPROLOL 25 MG TAB PO ×2 (07:51→20:38)
[2017-12-25] MEDS: ASPIRIN (EC) 81 MG TAB PO (07:51)
[2017-12-25] MEDS: ASCORBIC ACID 500 MG TAB PO ×2 (07:51→20:39)
[2017-12-25] MEDS: DOXYCYCLINE 100 MG TAB PO (07:52)
[2017-12-25] MEDS: GABAPENTIN 300 MG CAP PO ×3 (07:52→20:36)
[2017-12-25] MEDS: morphine 2 MG INJ IV ×3 (07:54→21:01)
[2017-12-25] MEDS: ATORVASTATIN 80 MG TAB PO (20:36)
[2017-12-25] MEDS: hydrALAzine 20 MG INJ IV (20:49)
[2017-12-25] MEDS: INSULIN GLARGINE [LANTus] (100 UNITS/ML) SYG SC (20:52)
[2017-12-26] MEDS: ACCU-CHEK XX (02:00)
[2017-12-26] MEDS: morphine 2 MG INJ IV ×4 (04:01→15:49)
[2017-12-26] MEDS: PIPER-TAZO 3.375 GM IV (PMX) 100 ML IVPB ×3 (06:15→21:42)
[2017-12-26] MEDS: ACETAMINOPHEN 325 MG TAB PO (06:56)
[2017-12-26] MEDS: INSULIN ASPART [NOVOLOG] 3 ML PEN SC ×7 (07:34→21:00)
[2017-12-26] MEDS: ASCORBIC ACID 500 MG TAB PO ×2 (07:38→21:06)
[2017-12-26] MEDS: METHIMAZOLE 5 MG TAB PO (07:38)
[2017-12-26] MEDS: GABAPENTIN 300 MG CAP PO ×3 (07:39→21:05)
[2017-12-26] MEDS: ASPIRIN (EC) 81 MG TAB PO (07:39)
[2017-12-26] MEDS: METOPROLOL 25 MG TAB PO ×2 (07:39→21:06)
[2017-12-26] MEDS: ONDANSETRON 4 MG INJ IV (10:21)
[2017-12-26] MEDS: ATORVASTATIN 80 MG TAB PO (21:05)
[2017-12-26] MEDS: INSULIN GLARGINE [LANTus] (100 UNITS/ML) SYG SC (21:08)
[2017-12-27] MEDS: ACCU-CHEK XX (02:00)
[2017-12-27] MEDS: morphine 2 MG INJ IV (04:20)
[2017-12-27] MEDS: morphine LIQ (10 MG/5 ML) CUP PO (06:42)
[2017-12-27] MEDS: INSULIN ASPART [NOVOLOG] 3 ML PEN SC ×4 (07:55→11:37)
[2017-12-27] MEDS: METHIMAZOLE 5 MG TAB PO (08:39)
[2017-12-27] MEDS: ASCORBIC ACID 500 MG TAB PO (08:39)
[2017-12-27] MEDS: GABAPENTIN 300 MG CAP PO ×2 (08:40→12:01)
[2017-12-27] MEDS: ASPIRIN (EC) 81 MG TAB PO (08:40)
[2017-12-27] MEDS: METOPROLOL 25 MG TAB PO (08:40)
[2018-01-13 14:03] LABS: PROCALCITONIN 2.18 ng/mL (<0.10)
== END 2017-12-27 15:22 | disposition home health service (06) | DRG 871 ==
LOC: TEL 23:39 → E/R 19:55
PROVIDERS: Family Medicine
DX: A41.9 Sepsis, unspecified organism (principal); J69.0 Pneumonitis due to inhalation of food and vomit; N17.9 Acute kidney failure, unspecified; I69.954 Hemiplegia and hemiparesis following unspecified cerebrovascular disease affecting left non-dominant side; N39.0 Urinary tract infection, site not specified; E11.9 Type 2 diabetes mellitus without complications; B96.20 Unspecified Escherichia coli [E. coli] as the cause of diseases classified elsewhere; E05.90 Thyrotoxicosis, unspecified without thyrotoxic crisis or storm; D63.8 Anemia in other chronic diseases classified elsewhere; I10 Essential (primary) hypertension; E78.5 Hyperlipidemia, unspecified; I69.992 Facial weakness following unspecified cerebrovascular disease; Z79.4 Long term (current) use of insulin
CPT/HCPCS: 36415; 71045; 80048; 80053; 81001; 82962; 83036; 83605; 83690; 83735; 84100; 84145; 84484; 85025; 85610; 85730; 87040; 87070; 87081; 87086; 87275; 87276; 87279; 87280; 92526; 92610; 93005; 96365; 96375; 97110; 97116; 97163; 97530; 99285-25

== ENCOUNTER 2017-12-28 01:37 | Emergency (ER) | payer MEDICARE, OTHER ==
[2017-12-28] MEDS: LABETALOL HCL 20MG INJ IV (03:00)
[2017-12-28 03:30] LABS: URINE BLOOD (Dip) POC Negative (NEGATIVE); URINE GLUCOSE (Dip) POC Negative (NEGATIVE); URINE KETONES (Dip) POC 1+ (NEGATIVE); URINE LEUKOCYTE EST (Dip) POC Trace (NEGATIVE); URINE NITRITE (Dip) POC Negative (NEGATIVE); URINE TOTAL PROTEIN POC 2+ (NEGATIVE)
[2017-12-28 03:57] LABS: ADD MAN DIFF? NO
[2017-12-28 04:02] LABS: BASOPHIL # 0.1 10^3/ul (0.0-0.1); BASOPHILS % 0.9 % (0.0-2.0); EOSINOPHILS # 0.2 10^3/ul (0.0-0.5); EOSINOPHILS % 1.5 % (0.0-7.0); HEMATOCRIT 29.5 % (37.0-47.0); HEMOGLOBIN 9.2 g/dl (12.0-16.0); LYMPHOCYTES # 2.4 10^3/ul (0.8-2.9); MEAN CORPUSCULAR HEMOGLOBIN 26.7 pg (29.0-33.0); MEAN CORPUSCULAR HGB CONC 31.2 g/dl (32.0-37.0); MEAN CORPUSCULAR VOLUME 85.5 fl (82.0-101.0); MEAN PLATELET VOLUME 11.4 fl (7.4-10.4); MONOCYTES % 6.1 % (0.0-11.0); NEUTROPHIL # 12.2 10^3/ul (1.6-7.5); NEUTROPHILS % 75.9 % (39.0-77.0); PLATELET COUNT 459 10^3/UL (140-415); RED BLOOD COUNT 3.45 10^6/ul (4.20-5.40); RED CELL DISTRIBUTION WIDTH 16.3 % (11.5-14.5)
[2017-12-28 04:18] LABS: PARTIAL THROMBOPLASTIN TIME 24.9 Sec (25.0-35.0); PROTIME 12.2 Sec (11.9-14.9)
[2017-12-28 04:22] LABS: ALANINE AMINOTRANSFERASE 30 IU/L (13-69); ALBUMIN 3.7 g/dl (3.3-4.9); ALBUMIN/GLOBULIN RATIO 1.08; ALKALINE PHOSPHATASE 81 IU/L (42-121); ANION GAP 13 (8-16); ASPARTATE AMINO TRANSFERASE 29 IU/L (15-46); BILIRUBIN,INDIRECT 0.3 mg/dl (0-1.1); BILIRUBIN,TOTAL 0.3 mg/dl (0.2-1.3); BLOOD UREA NITROGEN 13 mg/dl (7-20); CALCIUM 9.7 mg/dl (8.4-10.2); CARBON DIOXIDE 23 mmol/L (21-31); CHLORIDE 109 mmol/L (97-110); CREATININE 0.65 mg/dl (0.44-1.00); GLUCOSE 134 mg/dl (70-220); POTASSIUM 3.5 mmol/L (3.5-5.1); SODIUM 141 mmol/L (135-144); TOTAL PROTEIN 7.1 g/dl (6.1-8.1)
[2017-12-28 04:33] LABS: TROPONIN-I < 0.010 ng/ml (0.000-0.120)
== END 2017-12-28 09:26 | disposition home or self-care (01) ==
LOC: E/R 01:37
DX: F41.9 Anxiety disorder, unspecified (principal); D64.9 Anemia, unspecified; I10 Essential (primary) hypertension; E11.9 Type 2 diabetes mellitus without complications; E03.9 Hypothyroidism, unspecified; R07.9 Chest pain, unspecified; Z79.82 Long term (current) use of aspirin; Z79.84 Long term (current) use of oral hypoglycemic drugs
CPT/HCPCS: 36415; 70450; 71045; 80053; 81003; 83605; 84484; 85025; 85610; 85730; 87040; 87086; 93005; 99285-25